=== PATIENT | female | born 1975 | race Caucasian/White ===

== ENCOUNTER 2020-03-09 09:06 | Outpatient (CLI) | payer BC, SELFPAY ==
--- NOTE | ~2020-03-09 | MM_ITS ---
EXAMINATION: MM screening rin BI w tre HISTORY: Screening mammogram TECHNIQUE: Craniocaudal and mediolateral oblique 3-D tomosynthesis images were obtained and synthetic 2-D images were generated. Bilateral rotated lateral cc views. CAD analysis was submitted and interp reted. COMPARISON: 02/01/2019 bilateral digital screening mammogram BREAST PARENCHYMAL COMPOSITION: The breasts are heterogeneously dense, which may obscure small masses . FINDINGS: There is no evidence of suspicious mass, calcification, or architectural distortion to sugg est malignancy in either breast. There has been no suspicious interval change. IMPRESSION: 1. No mammographic evidence of malignancy. 2. Recommend routine screening mammography in one year. BI-RADS Category 1: Negative Reviewed, dictated and finalized at location A.
== END 2020-03-09 09:07 | disposition home or self-care (01) ==
PROVIDERS: PCP Family Medicine
DX: Z12.31 Encounter for screening mammogram for malignant neoplasm of breast (principal)
CPT/HCPCS: 77063; 77067

== ENCOUNTER 2020-09-29 21:43 | Emergency (ER) | payer BC, SELFPAY ==
--- NOTE | ~2020-09-29 | XR_ITS ---
EXAMINATION: XR chest 2V DATE: 09/30/2020 00:06 INDICATION: Chest palpitations TECHNIQUE: PA and lateral views of the chest are obtained. COMPARISON: 12/10/2019 FINDINGS: The lungs are free of acute opacities. There is no pleural effusion or pneumothorax. The ca rdiomediastinal silhouette is normal. The visualized bones and soft tissues are unremarkable. IMPRESSION: 1. No acute cardiopulmonary abnormality. Reviewed, dictated and finalized at location A. BODY INSPECTOR
--- NOTE | 2020-09-29 22:02 | ECG_ITS ---
Measurements Intervals [place] Rate: 129 P: 43 UT: 139 QRS: 54 QRSD: 94 T: 19 QT: 312 QTc: 457 Interpretive Statements SINUS TACHYCARDIA BORDERLINE T WAVE ABNORMALITY- INFERIOR LEADS ABNORMAL ECG Electronically Signed On 09-30-2020 8:52:30 [employer]PER[employer]OR [employer] by Say Salazar D.O.
[2020-09-29 22:05] VITALS: BP 159/85; PULSE 129; RESP 18; TEMP 37.2; O2SAT 98
[2020-09-29 22:10] LABS: Basophils Absolute Auto 0.1 K/mm3 (0.0-0.1); Eosinophils Absolute Auto 0.2 K/mm3 (0-0.3); Eosinophils Percent Auto 2.5 % (0-4.4); Hematocrit 38.9 % (37.0-47.0); Hemoglobin 12.6 g/dL (12.0-15.0); Immature Granulocyte Absolute 0.03 K/mm3 (0.00-0.031); Immature Granulocyte Percent A 0.3 % (0-0.5); Lymphocytes Absolute Auto 4.11 K/mm3 (0.9-3.2); Lymphocytes Percent Auto 46.9 % (18.3-44.2); Mean Corpuscular HGB Conc 32.4 g/dl (32-36); Mean Corpuscular Hemoglobin 29.4 pg (26-34); Mean Corpuscular Volume 90.9 fl (80-100); Mean Platelet Volume 10.3 fl (7.4-10.4); Monocytes Absolute Auto 0.8 K/mm3 (0.1-0.6); Monocytes Percent Auto 9.6 % (2.6-8.5); Neutrophils Absolute Auto 3.5 K/mm3 (1.3-6.7); Neutrophils Percent Auto 39.7 % (45.5-73.1); Platelet Count Result 294 k/mm3 (150-375); Red Blood Count 4.28 M/mm3 (4.2-5.4); Red Cell Distribution Width 13.1 % (11.5-14.5); White Blood Count 8.8 K/mm3 (4.5-10.0)
[2020-09-29 22:19] LABS: INR 0.8; Prothrombin Time 11.7 Seconds (11.1-14.7)
[2020-09-29 22:20] LABS: Partial Thromboplastin Time 27.4 SECONDS (22.3-36.8)
[2020-09-29 22:22] LABS: Anion Gap 10 mmol/L (8-16); Blood Urea Nitrogen 15 mg/dL (7-17); Carbon Dioxide 27 mmol/L (22-30); Chloride 103 mmol/L (98-107); Estimated Glomerular Filt Rate > 60; Glucose 154 mg/dL (65-105); Potassium 3.8 mmol/L (3.4-5.0); Sodium 140 mmol/L (137-145)
[2020-09-29 22:34] LABS: Troponin I < 0.012 ng/mL (0.000-0.034)
[2020-09-29 22:54] VITALS: BP 161/91; PULSE 126; RESP 18; TEMP 37.2; O2SAT 97
--- NOTE | 2020-09-29 23:27 | ED.ARRPALP ---
HPI - Arrhythmia/Palpitations General Chief Complaint: Arrhythmia/Palpitations Stated Complaint: palpitations Time Seen by Provider: 09/29/20 23:27 History of Present Illness HPI narrative: Burning pain in the chest and epigastrium for the past 45 minutes. Associated with heart racing, up to 175 per her watch. Started after eating taco [employer]. Worse with laying flat. No SOB, fever, cough. She does have a h/o GERD. Related Data Allergies Allergy/AdvReac Type Severity Reaction Status Date / Time tramadol Allergy Unknown Hives Verified 10/15/20 12:13 Review of Systems Review of Systems: All systems reviewed & are unremarkable except as noted in HPI and below Constitutional: Constitutional: Denies chills and Denies fever(s) ENT: Denies sore throat Cardiovascular: Cardiovascular: Reports chest pain Respiratory: Respiratory: Denies cough and Denies dyspnea Gastrointestinal: Gastrointestinal: Reports abdominal pain, Reports nausea and Denies vomiting Genitourinary: Genitourinary: Denies dysuria Musculoskeletal: Musculoskeletal: Denies back pain Neurologic: Denies dizziness and Denies weakness FOR[facility]LY [facility] Past Medical History Medical History Finger fracture GERD (gastroesophageal reflux disease) History of in vitro fertilization Otitis media Pilonidal cyst Prediabetes Surgical History Surgical History History of surgical removal of pilonidal cyst Hx of tonsillectomy Social History Social History Smoking status: Former smoker Alcohol intake: current Substance use: never Exam Const: General: healthy appearing, no acute distress and alert Orientation/consciousness: patient oriented x3 HENMT: Head: normal to inspection Neck: Neck: normal visual inspection and no lymphadenopathy Chest: Chest palpation & inspection: no tenderness Resp: Effort & Inspection: normal respiratory effort Auscultation: clear to auscultation bilaterally, no rales, no rhonchi and no wheezes Cardio: Jugular venous distension: no JVD Rate: tachycardic Rhythm: regular rhythm Heart sounds: no murmurs GI: Inspection: non-distended GI Palp: Yes Soft to palpation and No Tenderness to palpation present (GI) Skin: General skin exam: normal color Neuro: General: patient oriented x3, moves all extremities and no focal motor deficits Speech: normal speech Extrem: General: normal to inspection and no edema Psych: Appearance: well kempt Affect: Anxious affect present Course Vital Signs Vital signs: Vital Signs Temperature 37.2 C 09/29/20 22:05 Pulse Rate 129 H 09/29/20 22:05 Respiratory Rate 18 09/29/20 22:05 Blood Pressure 159/85 H 09/29/20 22:05 Pulse Oximetry 98 09/29/20 22:05 Temperature 37.2 C 09/29/20 22:54 Pulse Rate 109 H 09/30/20 00:51 Respiratory Rate 20 09/30/20 00:51 Blood Pressure 159/74 H 09/30/20 00:51 Pulse Oximetry 100 09/30/20 00:51 MDM - Arrhythmia/Palpitations MDM Narrative Medical decision making narrative: Pain most consistent with GI source. Releived with GI cocktail. She does have mild ongoing sinus tachycardia, which she says is not unusual for her. Medical Records Attestation: I reviewed the patient's medical records. Lab Data Attestation: I reviewed the patient's lab results. Result diagrams: 09/29/20 22:04 09/29/20 22:04 Labs: Lab Results 09/29/20 09/29/20 09/29/20 Range/Units 22:04 22:04 22:04 WBC 8.8 (4.5-10.0) K/mm3 RBC 4.28 (4.2-5.4) M/mm3 Hgb 12.6 (12.0-15.0) g/dL Hct 38.9 (37.0-47.0) % MCV 90.9 (80-100) fl MCH 29.4 (26-34) pg MCHC 32.4 (32-36) g/dl RDW 13.1 (11.5-14.5) % Plt Count 294 (150-375) k/mm3 MPV 10.3 (7.4-10.4) fl Immature Gran % (Auto) 0.3 (0-0.5) % Neut % (Auto) 39.7 L (45.5-73.1)
[2020-09-29 23:34] VITALS: PULSE 115; RESP 22; O2SAT 98
[2020-09-29] MEDS: ASPIRIN 81 MG CHEWABLE TABLET 324 MG PO (23:43)
[2020-09-29] MEDS: ONDANSETRON HCL ODT 4 MG TABLET PO (23:43)
[2020-09-29 23:45] VITALS: PULSE 117; RESP 21; O2SAT 98
[2020-09-30] VITALS: PULSE 114; RESP 18; O2SAT 95
[2020-09-30 00:01] VITALS: BP 131/83
[2020-09-30 00:07] VITALS: BP 149/75; PULSE 119; RESP 23; O2SAT 96
[2020-09-30 00:16] VITALS: PULSE 110; RESP 21; O2SAT 97
[2020-09-30] MEDS: PANTOPRAZOLE 40 MG TABLET PO (00:28)
[2020-09-30 00:51] VITALS: BP 159/74; PULSE 109; RESP 20; O2SAT 100
== END 2020-09-30 00:53 | disposition home or self-care (01) ==
PROVIDERS: General Practice; Emergency Provider Emergency Medicine; PCP Family Medicine
DX: K21.9 Gastro-esophageal reflux disease without esophagitis (principal); R73.03 Prediabetes; Z87.891 Personal history of nicotine dependence
CPT/HCPCS: 36415; 71046; 80048; 84484; 85025; 85610; 85730; 93005; 99284; A9270

== ENCOUNTER 2020-12-13 11:22 | Outpatient (NON) | payer BC, SELFPAY ==
[2020-12-13 21:41] LABS: SARS-CoV-2 RNA PCR Negative
== END 2020-12-13 11:23 ==
LOC: ANHCOVIDDT 11:23
PROVIDERS: PCP Family Medicine; Visit Provider Physician Assistant
DX: Z20.822 Contact with and (suspected) exposure to COVID-19 (principal); R09.81 Nasal congestion
CPT/HCPCS: C9803; U0003; U0005

== ENCOUNTER → 2020-12-29 01:05 | Outpatient (CLI) | payer BC, SELFPAY ==
[2020-12-29 19:49] LABS: SARS-CoV-2 RNA PCR Negative
== END ==
PROVIDERS: PCP Family Medicine; Visit Provider Internal Medicine Gastroenterology
DX: Z01.812 Encounter for preprocedural laboratory examination (principal); Z20.822 Contact with and (suspected) exposure to COVID-19
CPT/HCPCS: C9803; U0003; U0005

== ENCOUNTER 2021-01-02 01:09 | Day surgery (SDC) | payer BC, SELFPAY ==
[2020-12-19 15:06] VITALS: BMI 27.1
[2021-01-02 09:14] VITALS: BP 142/86; PULSE 74; RESP 16; TEMP 37.2; O2SAT 100; BMI 28.8
[2021-01-02] MEDS: LACTATED RINGERS 1,000 ML 150 ML IV CONT (09:31)
--- NOTE | 2021-01-02 09:47 | WPDANESEPPF ---
Anes - Initial Pre Proc Eval Procedure: Operation Date: 01/02/21 10:00 Proposed Procedures p Esophagogastroduodenoscopy - Omar Rahman MD Date/Time: 01/02/21 09:47 Surgeon: Omar Rahman MD Pre Op Diagnosis: GERD Patient Data Age: 45 Gender: F Height: 5 ft 5 in Weight: 78.4 kg Last Vital Signs Temp 37.2 C 01/02/21 09:14 Pulse 74 01/02/21 09:14 Resp 16 01/02/21 09:14 BP 142/86 H 01/02/21 09:14 Pulse Ox 100 01/02/21 09:14 Allergies Allergy/AdvReac Type Severity Reaction Status Date / Time tramadol Allergy Unknown Hives Verified 01/02/21 09:13 Home Medications Medication Instructions Recorded Confirmed Type pantoprazole 40 mg tablet,delayed 40 mg PO BID #180 tablet 10/30/20 12/19/20 Rx release cetirizine [Zyrtec] 10 mg PO DAILY PRN 12/19/20 12/19/20 History metformin 500 mg tablet 500 mg PO BID #180 tablet 12/28/20 Rx Patient hx anesthesia problems: none Family hx anesthesia problems: none PMFSH Past Medical History Medical History Finger fracture GERD (gastroesophageal reflux disease) History of in vitro fertilization Otitis media Pilonidal cyst Prediabetes Surgical History Surgical History History of surgical removal of pilonidal cyst Hx of tonsillectomy Social History Social History Alcohol intake: current Substance use: never Substance use type: does not use Living arrangements: with family Gender identity (if verbalized by the patient): Female Sexual Orientation (if Verbalized by the Patient): Straight or Heterosexual Spiritual care concerns: No Anes - Eval Final PreProcedure Day of Procedure 01/02/21 09:47 Patient weight: overweight Heart: regular rate and rhythm Lungs: clear to auscultation Airway: Mallampati scale class II Neurological: alert and oriented Last oral intake: >/= 8 hours ASA classification: II Emergent: no Anesthetic plan: proceed Anesthesia type and monitoring: general GIVS and standard monitoring Informed Consent: The patient's anesthetic plan and its attendant risks and benefits were discussed with the patient/family/POA. Questions were solicited and answers provided to the satisfaction of the patient/family/POA.
[2021-01-02 09:48] LABS: Glucose Point of Care 92 (65-105)
--- NOTE | 2021-01-02 10:13 | PM.HPGS ---
History of Present Illness History of Present Illness Consent: Risks, benefits, and alternatives have been discussed and questions answered. Patient agrees to proceed with procedure. Chief complaint: GERD Narrative: Stephanie Aiken is a 45 year old female with gerd on protonix bid but never had egd Review of Systems Constitutional: Constitutional: Denies headache(s) and Denies weakness Eyes: Eyes: Denies blurry vision ENT: Reports Normal hearing present, Denies headache(s) and Denies neck pain Cardiovascular: Cardiovascular: Denies chest pain and Denies dyspnea Respiratory: Respiratory: Denies dyspnea Gastrointestinal: Gastrointestinal: Reports no additional gastrointestinal complaints Genitourinary: Genitourinary: Denies dysuria Musculoskeletal: Musculoskeletal: Denies neck pain Integumentary/Breasts: Skin/Breast: Denies dry skin Neurologic: Reports Normal hearing present, Denies headache(s) and Denies weakness Psychiatric: Psychiatric: Denies anxiety Endocrine: Endocrine: Denies change in body appearance Hematologic/Lymphatic: Hematologic/Lymphatic: Denies easy bleeding Allergic/Immunologic: Allergic/Immunologic: Denies urticaria PMFSH Past Medical History Medical History Finger fracture GERD (gastroesophageal reflux disease) History of in vitro fertilization Otitis media Pilonidal cyst Prediabetes Surgical History Surgical History History of surgical removal of pilonidal cyst Hx of tonsillectomy Social History Social History Alcohol intake: current Substance use: never Substance use type: does not use Living arrangements: with family Gender identity (if verbalized by the patient): Female Sexual Orientation (if Verbalized by the Patient): Straight or Heterosexual Spiritual care concerns: No Meds Home Medications and Allergies Home Medications Medication Instructions Recorded Confirmed Type pantoprazole 40 mg tablet,delayed 40 mg PO BID #180 tablet 10/30/20 12/19/20 Rx release cetirizine [Zyrtec] 10 mg PO DAILY PRN 12/19/20 12/19/20 History metformin 500 mg tablet 500 mg PO BID #180 tablet 12/28/20 Rx Allergies Allergy/AdvReac Type Severity Reaction Status Date / Time tramadol Allergy Unknown Hives Verified 01/02/21 09:13 Vital Signs Vital Signs - 24 hr 01/02/21 09:14 Temperature 98.9 F Pulse Rate 74 Respiratory Rate 16 Blood Pressure 142/86 H Pulse Oximetry 100 Exam Const: General: comfortable and no acute distress HENMT: General nose exam: Normal nares present Eyes: General: appearance normal, both eyes and all related structures Neck: Neck: no JVD Resp: Auscultation: clear to auscultation bilaterally Cardio: Rate: regular rate Rhythm: regular rhythm GI: Inspection: non-distended GI Palp: Yes Soft to palpation Skin: General skin exam: normal color Neuro: General: gait normal Speech: normal speech Extrem: General: normal to inspection Psych: Mental Status: mental status grossly normal Assessment and Plan Assessment and plan (1) GERD (gastroesophageal reflux disease): Qualifiers: Esophagitis presence: without esophagitis Qualified Code(s): K21.9 - Gastro-esophageal reflux disease without esophagitis Code(s): K21.9 - Gastro-esophageal reflux disease without esophagitis Status: Acute Assessment and Plan: proceed with egd
[2021-01-02] MEDS: BENZOCAINE (*SP) 60 ML SPRAY CAN (HURRICAINE) 1 SPRAY MUCOUS MEM (10:21)
[2021-01-02 10:23] VITALS: BP 104/66; PULSE 66; RESP 20; O2SAT 97
[2021-01-02 10:33] VITALS: BP 102/64; PULSE 64; RESP 18; O2SAT 98
[2021-01-02 10:43] VITALS: BP 123/86; PULSE 72; RESP 20; O2SAT 96
== END 2021-01-02 10:58 | disposition home or self-care (01) ==
PROVIDERS: PCP Family Medicine; Visit Provider Internal Medicine Gastroenterology
PROC: 0DJ08ZZ Inspection of Upper Intestinal Tract, Via Natural or Artificial Opening Endoscopic (ICD-10-PCS; CPT 43235; principal; 2021-01-02 10:00)
DX: K21.9 Gastro-esophageal reflux disease without esophagitis (principal); K29.50 Unspecified chronic gastritis without bleeding; R73.03 Prediabetes; Z79.84 Long term (current) use of oral hypoglycemic drugs
CPT/HCPCS: 43239; 82948; 88305; C9803; J2704; J7120; U0003; U0005

== ENCOUNTER 2021-04-03 07:53 | Outpatient (CLI) | payer BC, SELFPAY ==
--- NOTE | ~2021-04-03 | MM_ITS ---
EXAMINATION: MM screening rin BI w tre HISTORY: Screening TECHNIQUE: Craniocaudal and mediolateral oblique 3-D tomosynthesis images were obtained and synthetic 2-D images were generated. CAD analysis was submitted and interpreted. COMPARISON: Comparison to multiple prior studies sequentially, with oldest reviewed study dated 02/01. BREAST PARENCHYMAL COMPOSITION: The breasts are heterogenously dense, which may obscure small masses FINDINGS: There is no evidence of suspicious mass, calcification, or architectural distortion to sugg est malignancy in either breast. There has been no suspicious interval change. IMPRESSION: 1. No mammographic evidence of malignancy. 2. Recommend routine screening mammography in one year. BI-RADS Category 1: Negative Reviewed, dictated and finalized at location A.
== END 2021-04-03 07:54 | disposition home or self-care (01) ==
LOC: ANHIMG 07:55
PROVIDERS: PCP Family Medicine; Visit Provider Physician Assistant
DX: Z12.31 Encounter for screening mammogram for malignant neoplasm of breast (principal)
CPT/HCPCS: 77063; 77067

== ENCOUNTER 2022-04-22 08:00 | Outpatient (RCR) | payer BC, SELFPAY ==
[2022-02-21 14:02] VITALS: BP_SYST 116
--- NOTE | 2022-02-21 15:06 | PTOPEVAL ---
PHYSICAL THERAPY INITIAL EVALUATION. Thank you for referring Stephanie Aiken to [facility].? The patient is scheduled to be seen for therapy? 2x/week for 8 weeks. Please review, sign, date and return this plan of care [facility]. I agree with and certify that the following plan of care is medically necessary. Referring Physician Date Attending Provider: Alberto Lomax MD *PT Outpatient Evaluation Start: 02/21/22 Evaluation Information Diagnosis Adhesive capsulitis of R shoulder Onset Jul Subjective Information Pt states her shoulder started Query Text:As Reported By Patient/ hurting around July, she Family went to her PA and was sent to PT and was placed on a few medications. She was sent to Dr. Lomax by her PA and received an injection on . Pt cannot seem to find a mechanism of injury. Pain Assessment Right Shoulder(s) Reported Pain Level 2 Pain Radiation Right Arm Pain Frequency Chronic,Intermittent Lowest Pain Intensity 0 Greatest Pain Intensity 8 Pain Aggravating Factors Lifting Upper Extremity Range of Motion Right Scapular: Retraction Normal Scapular: Protraction Normal Shoulder Flexion - Active 116 Shoulder Flexion - Passive 144 Shoulder Abduction - Active 95 Shoulder Abduction - Passive 116 Shoulder Medial Rotation - Active 32 Shoulder Medial Rotation - Active L4 Shoulder Lateral Rotation - Passive 48 Shoulder Lateral Rotation - Active T3 Scapular/Shoulder Range of Motion L shoulder flexion 0-152 Comments L shoulder abduction 0-176 L active ER T4 L active IR T10 measured in 45 deg of abduction Upper Extremity Muscle Strength Testing Right Shoulder Flexion Strength 4- Good - Shoulder Abduction Strength 3+ Fair + Shoulder Medial Rotation Strength 4+ Good + Shoulder Lateral Rotation Strength 4+ Good + Shoulder Strength Comments L shoulder grossly 4+/5 to 5/5 Posture Shoulder Posture (R) Rounded Manual Therapy Movement Findings Moderate Hypomobility Treatment Comments Decreased PROM in R compared Query Text:Include Technique and to L shoulder. inferior glides Result of Technique to increase flexion and abduction PT Clinical Summary Stephanie presents to therapy today for her initial evaluation for a diagnosis o
--- NOTE | 2022-03-07 11:57 | PCPTNOTE ---
Patient called & cancelled scheduled appointment this date due to her daughter having to stay home from daycare.
--- NOTE | 2022-03-13 08:45 | PCPTNOTE ---
Patient called & cancelled scheduled appointment this date due to having another MD appointment at the same time.
--- NOTE | 2022-04-11 08:57 | PCPTNOTE ---
Patient called & cancelled scheduled appointment this date due to not having available housekeeper child care.
[2022-04-22 08:04] VITALS: BP_SYST 178
--- NOTE | 2022-04-22 08:42 | PTOPEVAL ---
PHYSICAL THERAPY PROGRESS REPORT AND DISCHARGE SUMMARY. Thank you for referring Stephanie Aiken to [facility].? The patient is to be discharged from skilled therapy services at this time. Please review, sign, date and return this plan of care ULI. I agree with and certify that the following plan of care is medically necessary. Referring Physician Date Attending Provider: Alberto Lomax MD Evaluation Information Diagnosis Adhesive capsulitis of R shoulder Onset Jul Subjective Information Pt states overall she feels Query Text:As Reported By Patient/ like therapy is going really Family well. She states the biggest change for her in no more daily pain. Occasionally she will still get an achy pain but it is no longer constant or even daily. Pt states she is able to do everything but reach behind her back, and she states her strength is great. She reports good compliance with her HEP. She states she only gets pain after her exercises, she states her arms feel tired and overworked. Pain Assessment Self Report Pain Assessment Right Shoulder(s) Reported Pain Level 0 Greatest Pain Intensity 3 Upper Extremity Range of Motion Scapular/ Shoulder Range of Motion Right Scapular: Retraction Normal Scapular: Protraction Normal Shoulder Flexion - Active 150 Shoulder Flexion - Passive 156 Shoulder Abduction - Active 153 Shoulder Abduction - Passive 178 Shoulder Medial Rotation - Active 48 Shoulder Medial Rotation - Active T10 Shoulder Lateral Rotation - Passive 55 Shoulder Lateral Rotation - Active T4 Scapular/Shoulder Range of Motion L shoulder flexion 0-152 Comments L shoulder abduction 0-176 L active ER T4 L active IR T6 rotation measured in 45 deg of abduction Upper Extremity Muscle Strength Testing Scapular/Shoulder Right Shoulder Flexion Strength 4+ Good + Shoulder Abduction Strength 4+ Good + Shoulder Medial Rotation Strength 5 Normal Shoulder Lateral Rotation Strength 5 Normal Shoulder Strength Comments L shoulder grossly 4+/5 to 5/5 PT Clinical Summary Stephanie Vidal presents to therapy today for her progress report following 12 visits of skilled therapy to address
== END 2022-04-22 14:42 | disposition home or self-care (01) ==
LOC: ANHPT 08:00
PROVIDERS: PCP Family Medicine; Referring Provider Orthopaedic Surgery; Visit Provider Orthopaedic Surgery
DX: M75.01 Adhesive capsulitis of right shoulder (principal); M77.8 Other enthesopathies, not elsewhere classified
CPT/HCPCS: 97110; 97112; 97140; 97161

== ENCOUNTER → 2022-05-26 15:02 | Outpatient (CLI) | payer BC, SELFPAY ==
--- NOTE | ~2022-05-26 | XR_ITS ---
XR abdomen/kub 1V 05/26/2022 15:31 Indication: Right flank pain Procedure: KUB Comparison: CT dated 05/26/2022 Findings: There is a faint stone in the lower pole the right kidney. There are pelvic phleboliths. No definite ureteral stone identified. Bowel pattern is nonobstructive. No acute osseous abnormality. Impression: 1: Right nephrolithiasis. Reviewed, dictated and finalized at location A. Impression: 1: Right nephrolithiasis.
--- NOTE | ~2022-05-26 | CT_ITS ---
EXAMINATION: CT abdomen pelvis wo con DATE: 05/26/2022 15:31 INDICATION: Right flank pain. History of kidney cysts. TECHNIQUE: Computed tomography (CT) of the abdomen and pelvis was performed without intravenous contr ast. Automated exposure control and iterative reconstruction technique were employed. Exam dose: 518 .82 mGy-cm total exam DLP. COMPARISON: None. FINDINGS: The lung bases are clear of infiltrate or consolidation. Normal heart size. No pericardial or pleural effusion. The liver, gallbladder, bile ducts, spleen, pancreas, pancreatic duct and adrenal glands are unremark able. Approximately 2.8 x 4.5 mm nonobstructing lower pole right renal calculus. Approximately 8 mm hyperdense probable upper pole right renal cyst. 1.6 cm left renal cyst. There are probable additional renal cyst. The examination is limited without the use of IV contrast material. No ureteral calculus or hydroureteronephrosis. The urinary bladder is unremarkable. Probable approximately 17 mm right ovarian cyst; the uterus and adnexal areas are otherwise unremarka ble. There is normal caliber of the abdominal aorta. No intraperitoneal or retroperitoneal or pelvic mass lesion or adenopathy or ascites. Diverticulosis of colon; no CT evidence of diverticulitis. No bowel obstruction or intraperitoneal fr ee air. Small fat-containing umbilical hernia. Bilateral L5 pars interarticularis defects without spondylolisthesis. Included skeletal structures ar e otherwise unremarkable. IMPRESSION: Nonobstructing approximately 2.8 x 4.5 mm lower pole right renal calculus Bilateral renal cysts Approximately 17 mm probable right ovarian cyst Diverticulosis of the colon Bilateral L5 pars interarticularis defects; no associated spondylolisthesis Reviewed, dictated and finalized at Location A. Reviewed, dictated and finalized at location A. IMPRESSION: Nonobstructing approximately 2.8 x 4.5 mm lower pole right renal c alculus Bilateral renal cysts Approximately 17 mm probable right ovarian cyst Diverticulosis of the colon Bilateral L5 pars interarticularis defects; no associated spondylolisthesis
== END ==
PROVIDERS: PCP Internal Medicine; Visit Provider Nurse Practitioner Family
DX: R10.9 Unspecified abdominal pain (principal); N20.0 Calculus of kidney; N28.1 Cyst of kidney, acquired; K57.30 Diverticulosis of large intestine without perforation or abscess without bleeding; N83.201 Unspecified ovarian cyst, right side
CPT/HCPCS: 74018; 74176

== ENCOUNTER 2022-06-23 08:54 | Outpatient (CLI) | payer BC, SELFPAY ==
--- NOTE | 2022-06-23 09:00 | ECG_ITS ---
Measurements Intervals [place] Rate: 70 P: 58 RI: 133 QRS: 80 QRSD: 93 T: 40 QT: 377 QTc: 408 Interpretive Statements SINUS RHYTHM NORMAL ELECTROCARDIOGRAM COMPARED TO ECG 09/29/2020 21:54:45 PATIENT IS NO LONGER TACHYCARDIC Electronically Signed On 06-23-2022 14:31:52 CDT by Maury Jernigan M.D.
[2022-06-23 09:43] LABS: Anion Gap 11 mmol/L (8-16); Blood Urea Nitrogen 10 mg/dL (7-17); Calcium 9.4 mg/dL (8.4-10.2); Carbon Dioxide 24 mmol/L (22-30); Chloride 103 mmol/L (98-107); Estimated Glomerular Filt Rate > 60; Glucose 102 mg/dL (65-110); Potassium 3.9 mmol/L (3.4-5.0); Sodium 138 mmol/L (137-145)
[2022-06-23 09:44] LABS: Partial Thromboplastin Time 28.2 SECONDS (22.3-36.8); Prothrombin Time 12.3 Seconds (11.1-14.7)
== END 2022-06-23 08:55 | disposition home or self-care (01) ==
LOC: ANHSURGERY 09:00
PROVIDERS: Anesthesiology; PCP Internal Medicine; Visit Provider Urology
DX: R73.03 Prediabetes (principal); N20.0 Calculus of kidney; Z01.818 Encounter for other preprocedural examination
CPT/HCPCS: 36415; 80048; 85610; 85730; 87086; 93005

== ENCOUNTER 2022-06-25 09:03 | Outpatient (CLI) | payer BC, SELFPAY ==
--- NOTE | ~2022-06-25 | MM_ITS ---
EXAMINATION: MM screening rin BI w tre HISTORY: Screening mammogram, family history of breast cancer in her mother. TECHNIQUE: Craniocaudal and mediolateral oblique 3-D tomosynthesis images were obtained and synthetic 2-D images were generated. CAD analysis was submitted and interpreted. COMPARISON: 04/03/2021, 03/09/2020, 02/01/2019 BREAST PARENCHYMAL COMPOSITION: The breasts are heterogeneously dense, which may obscure small masses . FINDINGS: There is no suspicious mass, calcification, or architectural distortion to suggest malignan cy in either breast. There has been no suspicious interval change. IMPRESSION: 1. No mammographic evidence of malignancy. 2. Recommend routine screening mammography in one year. BI-RADS Category 1: Negative Reviewed, dictated and finalized at location A.
== END 2022-06-25 09:04 | disposition home or self-care (01) ==
PROVIDERS: PCP Internal Medicine; Referring Provider Nurse Practitioner
DX: Z12.31 Encounter for screening mammogram for malignant neoplasm of breast (principal)
CPT/HCPCS: 77063; 77067

== ENCOUNTER 2022-06-27 00:31 | Day surgery (SDC) | payer BC, SELFPAY ==
[2022-06-19 11:58] VITALS: BMI 29.2
--- NOTE | 2022-06-19 12:08 | PC.NURSE ---
Report to the Outpatient Waiting Room, entrance under the green pavilion located off [facility], at time 6:00 on date 06/27/22. OR Time: 7:30. - You and your visitor will be asked a series of questions to screen for COVID 19 for your protection. - Only one visitor is allowed at this time. - The patient visitor is requested to leave or wait in car when not with patient. - A mask is required within the hospital. Patients may have clear liquids (water, carbonated beverages, clear teas, apple juice) until 3 hours prior to surgery (4:30) with a maximum of 20 ounces. - No food from midnight until time of surgery Take the following medications with a SIP of water the morning of surgery: NONE Medications to discontinue per physician: N/A Date to take last dose: N/A Please no make-up, nail estonian, hairspray, perfume, deodorant, or body powder the day of surgery. No jewelry (including any body piercings) or valuables the day of surgery, leave them at home. Please take a shower or bath the night before, or the morning of, surgery with an antibacterial soap. Wear comfortable, loose fitting clothing. - Jewelry must be removed prior to entering the operating room. Rings and piercings that are not removed may be cut off. - The hospital will not accept responsibility for valuables. - Please leave all valuables, including medications, at home the day of surgery. If you are going home after surgery, a licensed hazmat truck driver must drive you home. - NO public transportation without another adult. - We recommend that an adult stay with you for 24 hours following discharge. - We also recommend that you do not drive, make important decision, drink alcoholic beverages, or take any drugs that were not prescribed by your health care provider for at least 24 hours after your discharge time. Follow any additional instructions given to you from your surgeon. If you or anyone in your household have experienced Covid symptoms in the past week, please notify your surgeon or the nurse liaison at the phone number below for possible testing. Telephone instructions given to PT - ARIADNE KIM and asked if any additional questions and then verbalized understanding. Patient advised to call surgeon office or pre surgery nurse liaison [phone] if any additional questions.
--- NOTE | ~2022-06-27 | XR_ITS ---
EXAMINATION: XR abdomen/kub 1V DATE: 06/27/2022 06:20 INDICATION: Kidney stone. TECHNIQUE: A supine view of the abdomen on 2 radiographs was obtained. COMPARISON: CT abdomen and pelvis 05/26/2022 FINDINGS: There are no dilated loops of bowel. There is a 4 mm stone in right kidney lower pole. Ther e are phleboliths in the pelvis. IMPRESSION: 1. 4 mm stone in right kidney lower pole. Reviewed, dictated and finalized at location A.
[2022-06-27] MEDS: LACTATED RINGERS 1,000 ML 30 ML IV CONT (06:30)
--- NOTE | 2022-06-27 06:56 | WPDHPUPDATE1 ---
History and Physical Update Update Date/Time: 06/27/22 06:56 History and Physical has been reviewed, including an updated exam of the patient. There are NO changes in the patient's condition. Risks, benefits, and alternatives have been discussed and questions answered. Patient agrees to proceed with procedure.
[2022-06-27 07:01] LABS: Glucose Point of Care 106 mg/dl (65-105)
--- NOTE | 2022-06-27 07:06 | WPDANESEPPF ---
Anes - Initial Pre Proc Eval Procedure: Operation Date: 06/27/22 07:30 Proposed Procedures p Right Extracorporeal Shock Wave Lithotripsy - Thompson Costa MD s Possible Right Stent Placement - Thompson Costa MD Date/Time: 06/27/22 07:06 Surgeon: Thompson Costa MD Pre Op Diagnosis: Right Kidney Stone Patient Data Age: 47 Gender: F Height: 1.63 m Weight: 77.11 kg Allergies Allergy/AdvReac Type Severity Reaction Status Date / Time tramadol Allergy Unknown Hives Verified 06/19/22 11:57 Home Medications Medication Instructions Recorded Confirmed Type metformin 500 mg tablet 500 mg PO BID #180 tabs 01/28/22 06/19/22 Rx pantoprazole 40 mg tablet,delayed 40 mg PO QAM #90 tabs 01/28/22 06/19/22 Rx release cetirizine 10 mg tablet (Zyrtec) 10 mg PO DAILY PRN Allergy Symptoms 05/08/22 06/19/22 History Laboratory Tests 06/27/22 06:54 POC Capillary Glucose 106 mg/dl H mg/dl (65-105) Patient hx anesthesia problems: none Family hx anesthesia problems: none Results Review: All pre-operative results and documents have been reviewed as part of the pre-operative evaluation. [facility] Past Medical History Medical History Adhesive capsulitis of right shoulder Allergies Basal cell carcinoma Finger fracture GERD (gastroesophageal reflux disease) History of in vitro fertilization In vitro fertilization Insulin resistance Kidney stones Otitis media Pilonidal cyst Prediabetes Surgical History Surgical History History of D&C History of surgical removal of pilonidal cyst Hx of tonsillectomy Family History Family History Father Family history of alcoholism Family history of cancer Hypertension Depression Heart disease Mother Family history of cancer Hypertension Depression Family history of thyroid disorder Grandparent Family history of cancer Hypertension Heart disease Cerebrovascular accident Social History Social History Years smoked: 15 Smoking status: Former smoker Tobacco type: cigarettes Smoking end date: 11/16/10 Alcohol intake: never Alcohol use details: occasional Substance use: never Substance use type: does not use Living arrangements: with family Additional occupation/education comments: RN Gender identity (if verbalized by the patient): Female Sexual Orientation (if Verbalized by the Patient): Straight or Heterosexual Spiritual care concerns: No Anes - Eval Final PreProcedure Day of Procedure 06/27/22 07:06 Patient weight: overweight Heart: regular rate and rhythm Lungs: clear to auscultation Airway: Mallampati scale class II Neurological: alert and oriented Last oral intake: >/= 8 hours ASA classification: II Emergent: no Anesthetic plan: proceed Anesthesia type and monitoring: general LMA and standard monitoring Results Review: All pre-operative results and documents have been reviewed as part of the pre-operative evaluation. Informed Consent: The patient's anesthetic plan and its attendant risks and benefits were discussed with the patient/family/POA. Questions were solicited and answers provided to the satisfaction of the patient/family/POA.
[2022-06-27] MEDS: ceFAZolin 2 GM/D5W 50 ML 2 GM/50 ML BAG IVPB (07:35)
--- NOTE | 2022-06-27 07:51 | W.PM.PROC2 ---
Procedure Note - Detailed Date of Procedure 06/27/22 Pre-op Diagnosis Right Kidney Stone Post-op Diagnosis Same Procedure Performed Right ESWL Surgeon Thompson Costa MD Description of Procedure The patient was brought to the operative suite where she was placed in the supine position on the Dornier lithotripsy table. The focal point of the lithotripter was placed at a 4-5mm right lower pole renal calculus. A total of 2500 shocks were delivered at a power setting of 4. There appeared to be good fragmentation of the stone. The patient tolerated the procedure well and was taken to the recovery room in good condition. Drains No Packing No Pathology None sent Complications No immediate complications
--- NOTE | 2022-06-27 08:11 | SUR.OPER ---
LEFT FOREARM IV SITE INTACT/NO REDNESS,WARMTH, OR SWELLING. INFUSING WITHOUT DIFFICULTY.
[2022-06-27 08:25] VITALS: BP 100/67; PULSE 58; RESP 15; TEMP 36.5; O2SAT 100
[2022-06-27 08:40] VITALS: BP 118/80; PULSE 76; RESP 18; O2SAT 100
[2022-06-27 08:41] LABS: Glucose Point of Care 93 mg/dl (65-105)
[2022-06-27 08:55] VITALS: BP 121/76; PULSE 82; RESP 14; O2SAT 98
[2022-06-27 09:06] VITALS: BP 139/73; PULSE 72; RESP 16
[2022-06-27 09:25] VITALS: BP 117/82; BP 142/80; PULSE 74; PULSE 81; RESP 16; TEMP 36.4; O2SAT 100
== END 2022-06-27 09:38 | disposition home or self-care (01) ==
PROVIDERS: PCP Internal Medicine; Visit Provider Urology
PROC: (CPT 50590; principal; 2022-06-27 07:30)
DX: N20.0 Calculus of kidney (principal); R73.03 Prediabetes; K21.9 Gastro-esophageal reflux disease without esophagitis; Z79.84 Long term (current) use of oral hypoglycemic drugs; Z87.891 Personal history of nicotine dependence
CPT/HCPCS: 50590; 74018; 82948; A9270; J0690; J1100; J2250; J2405; J2704; J3010; J7030; J7120

== ENCOUNTER 2022-07-25 14:19 | Outpatient (CLI) | payer BC, SELFPAY ==
--- NOTE | ~2022-07-25 | XR_ITS ---
EXAM: XR abdomen/kub 1V DATE: 07/25/2022 14:41 HISTORY: RIGHT URETERAL KIDNEY STONE . COMPARISON: 06/27/2022. FINDINGS: Clear lung bases. Normal bowel gas pattern. No organomegaly. Stable right lower pole calci fication. Pelvic phleboliths. Regional bones and soft tissues normal for age. IMPRESSION: Stable right nephrolithiasis. Reviewed, dictated and finalized at location K.
== END 2022-07-25 14:20 | disposition home or self-care (01) ==
PROVIDERS: PCP Internal Medicine; Visit Provider Nurse Practitioner Family
DX: N20.0 Calculus of kidney (principal)
CPT/HCPCS: 74018

== ENCOUNTER 2022-08-08 00:13 | Day surgery (SDC) | payer BC, SELFPAY ==
[2022-07-29 08:17] VITALS: BMI 29.2
[2022-08-08 07:16] VITALS: BP 149/84; PULSE 79; RESP 18; TEMP 36.8; O2SAT 100
[2022-08-08] MEDS: LACTATED RINGERS 1,000 ML 150 ML IV CONT (07:27)
[2022-08-08 07:29] LABS: Glucose Point of Care 92 mg/dl (65-105)
--- NOTE | 2022-08-08 07:54 | PM.HPGS ---
History of Present Illness History of Present Illness Consent: Risks, benefits, and alternatives have been discussed and questions answered. Patient agrees to proceed with procedure. Chief complaint: neoplasm screening Narrative: Stephanie Aiken is a 47 year old female here for first screening colonoscopy Review of Systems Constitutional: Constitutional: Denies headache(s) and Denies weakness Eyes: Eyes: Denies blurry vision ENT: Reports Normal hearing present, Denies headache(s) and Denies neck pain Cardiovascular: Cardiovascular: Denies chest pain and Denies dyspnea Respiratory: Respiratory: Denies dyspnea Gastrointestinal: Gastrointestinal: Reports no additional gastrointestinal complaints Genitourinary: Genitourinary: Denies dysuria Musculoskeletal: Musculoskeletal: Denies neck pain Integumentary/Breasts: Skin/Breast: Denies dry skin Neurologic: Reports Normal hearing present, Denies headache(s) and Denies weakness Psychiatric: Psychiatric: Denies anxiety Endocrine: Endocrine: Denies change in body appearance Hematologic/Lymphatic: Hematologic/Lymphatic: Denies easy bleeding Allergic/Immunologic: Allergic/Immunologic: Denies urticaria PMFSH Past Medical History Medical History Adhesive capsulitis of right shoulder Allergies Basal cell carcinoma Finger fracture GERD (gastroesophageal reflux disease) History of in vitro fertilization In vitro fertilization Insulin resistance Kidney stones Otitis media Pilonidal cyst Prediabetes Surgical History Surgical History (Updated 08/07/22 @ 08:04 by Marcy Leung CMA) H/O lithotripsy 06/2022 History of D&C History of surgical removal of pilonidal cyst Hx of tonsillectomy Family History Family History Father Family history of alcoholism Family history of cancer Hypertension Depression Heart disease Mother Family history of cancer Hypertension Depression Family history of thyroid disorder Grandparent Family history of cancer Hypertension Heart disease Cerebrovascular accident Social History Social History Smoking packs per day: 1.5 Smoking cigarettes per day: 30.0 Years smoked: 15 Smoking pack-years: 22.50 Smoking status: Former smoker Tobacco type: cigarettes Smoking end date: 11/16/10 Alcohol intake: current Alcohol use details: occasional Substance use: never Substance use type: does not use Living arrangements: with family Additional occupation/education comments: RN Gender identity (if verbalized by the patient): Female Sexual Orientation (if Verbalized by the Patient): Straight or Heterosexual Spiritual care concerns: No Meds Home Medications and Allergies Home Medications Medication Instructions Recorded Confirmed Type pantoprazole 40 mg tablet,delayed 40 mg PO QAM #90 tabs 01/28/22 08/07/22 Rx release cetirizine 10 mg tablet (Zyrtec) 10 mg PO DAILY PRN Allergy Symptoms 05/08/22 08/07/22 History metformin 500 mg tablet 500 mg PO BID #180 tabs 08/07/22 08/07/22 Rx semaglutide (weight loss) 0.25 0.25 mg (0.5 mL) subcut WEEKLY #2 08/07/22 08/07/22 Rx mg/0.5 mL subcutaneous pen mL injector (Wegovy) semaglutide (weight loss) 0.5 0.5 mg (0.5 mL) subcut WEEKLY #2 mL 08/07/22 08/07/22 Rx mg/0.5 mL subcutaneous pen injector (Wegovy) semaglutide (weight loss) 1 mg/0.5 1 mg (0.5 mL) subcut WEEKLY #2 mL 08/07/22 08/07/22 Rx mL subcutaneous pen injector (Wegovy) semaglutide (weight loss) 1.7 1.7 mg (0.75 mL) subcut WEEKLY #3 08/07/22 08/07/22 Rx mg/0.75 mL subcutaneous pen mL injector (Wegovy) semaglutide (weight loss) 2.4 2.4 mg (0.75 mL) subcut WEEKLY #3 08/07/22 08/07/22 Rx mg/0.75 mL subcutaneous pen mL injector (Wegovy) Allergies Allergy/AdvReac Type Severity Henry
--- NOTE | 2022-08-08 08:01 | WPDANESEPPF ---
Anes - Initial Pre Proc Eval Procedure: Operation Date: 08/08/22 08:00 Proposed Procedures p Screening Colonoscopy - Omar Rahman MD Date/Time: 08/08/22 08:01 Surgeon: Omar Rahman MD Pre Op Diagnosis: neoplasm screening Patient Data Age: 47 Gender: F Height: 1.63 m Weight: 76.9 kg Last Vital Signs Temp 98.2 F 08/08/22 07:16 Pulse 79 08/08/22 07:16 Resp 18 08/08/22 07:16 BP 149/84 H 08/08/22 07:16 Pulse Ox 100 08/08/22 07:16 O2 Del Method Room Air 08/08/22 07:16 Allergies Allergy/AdvReac Type Severity Reaction Status Date / Time tramadol Allergy Unknown Hives Verified 08/08/22 07:10 Home Medications Medication Instructions Recorded Confirmed Type pantoprazole 40 mg tablet,delayed 40 mg PO QAM #90 tabs 01/28/22 08/07/22 Rx release cetirizine 10 mg tablet (Zyrtec) 10 mg PO DAILY PRN Allergy Symptoms 05/08/22 08/07/22 History metformin 500 mg tablet 500 mg PO BID #180 tabs 08/07/22 08/07/22 Rx semaglutide (weight loss) 0.25 0.25 mg (0.5 mL) subcut WEEKLY #2 08/07/22 08/07/22 Rx mg/0.5 mL subcutaneous pen mL injector (Wegovy) semaglutide (weight loss) 0.5 0.5 mg (0.5 mL) subcut WEEKLY #2 mL 08/07/22 08/07/22 Rx mg/0.5 mL subcutaneous pen injector (Wegovy) semaglutide (weight loss) 1 mg/0.5 1 mg (0.5 mL) subcut WEEKLY #2 mL 08/07/22 08/07/22 Rx mL subcutaneous pen injector (Wegovy) semaglutide (weight loss) 1.7 1.7 mg (0.75 mL) subcut WEEKLY #3 08/07/22 08/07/22 Rx mg/0.75 mL subcutaneous pen mL injector (Wegovy) semaglutide (weight loss) 2.4 2.4 mg (0.75 mL) subcut WEEKLY #3 08/07/22 08/07/22 Rx mg/0.75 mL subcutaneous pen mL injector (Wegovy) Laboratory Tests 08/08/22 07:24 POC Capillary Glucose 92 mg/dl mg/dl (65-105) Patient hx anesthesia problems: none Family hx anesthesia problems: none Results Review: All pre-operative results and documents have been reviewed as part of the pre-operative evaluation. [facility] Past Medical History Medical History Adhesive capsulitis of right shoulder Allergies Basal cell carcinoma Finger fracture GERD (gastroesophageal reflux disease) History of in vitro fertilization In vitro fertilization Insulin resistance Kidney stones Otitis media Pilonidal cyst Prediabetes Surgical History Surgical History (Updated 08/07/22 @ 08:04 by Marcy Leung CMA) H/O lithotripsy 06/2022 History of D&C History of surgical removal of pilonidal cyst Hx of tonsillectomy Family History Family History Father Family history of alcoholism Family history of cancer Hypertension Depression Heart disease Mother Family history of cancer Hypertension Depression Family history of thyroid disorder Grandparent Family history of cancer Hypertension Heart disease Cerebrovascular accident Social History Social History Smoking packs per day: 1.5 Smoking cigarettes per day: 30.0 Years smoked: 15 Smoking pack-years: 22.50 Smoking status: Former smoker Tobacco type: cigarettes Smoking end date: 11/16/10 Alcohol intake: current Alcohol use details: occasional Substance use: never Substance use type: does not use Living arrangements: 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
[2022-08-08 08:11] VITALS: BP 112/76; PULSE 79; RESP 15; O2SAT 100
[2022-08-08 08:21] VITALS: BP 117/73; PULSE 80; RESP 15; O2SAT 100
[2022-08-08 08:31] VITALS: BP 117/86; PULSE 82; RESP 16; O2SAT 100
== END 2022-08-08 08:40 | disposition home or self-care (01) ==
PROVIDERS: PCP Internal Medicine; Visit Provider Internal Medicine Gastroenterology
PROC: 0DJD8ZZ Inspection of Lower Intestinal Tract, Via Natural or Artificial Opening Endoscopic (ICD-10-PCS; CPT 45378; principal; 2022-08-08 08:00)
DX: Z12.11 Encounter for screening for malignant neoplasm of colon (principal); Z79.84 Long term (current) use of oral hypoglycemic drugs; K21.9 Gastro-esophageal reflux disease without esophagitis; R73.03 Prediabetes; Z85.828 Personal history of other malignant neoplasm of skin; Z87.891 Personal history of nicotine dependence
CPT/HCPCS: 45378; 82948; J2704; J7120

== ENCOUNTER 2023-09-10 07:39 | Outpatient (CLI) | payer BC, SELFPAY ==
--- NOTE | ~2023-09-10 | MM_ITS ---
EXAMINATION: MM screening rin BI w tre HISTORY: Screening mammogram TECHNIQUE: Craniocaudal and mediolateral oblique 3-D tomosynthesis images were obtained and synthetic 2-D images were generated. CAD analysis was submitted and interpreted. COMPARISON: 06/25/2022, 04/03/2021, 03/09/2020 bilateral screening mammogram examinations BREAST PARENCHYMAL COMPOSITION: The breasts are heterogeneously dense, which may obscure small masses . FINDINGS: There is no evidence of suspicious mass, calcification, or architectural distortion to sugg est malignancy in either breast. There has been no suspicious interval change. IMPRESSION: 1. No mammographic evidence of malignancy. 2. Recommend routine screening mammography in one year. BI-RADS Category 1: Negative Reviewed, dictated and finalized at location A.
== END 2023-09-10 07:40 | disposition home or self-care (01) ==
PROVIDERS: PCP Internal Medicine; Visit Provider Nurse Practitioner
DX: Z12.31 Encounter for screening mammogram for malignant neoplasm of breast (principal)
CPT/HCPCS: 77063; 77067

== ENCOUNTER 2024-12-02 08:30 | Outpatient (RCR) | payer BC, SELFPAY ==
--- NOTE | 2024-09-12 11:12 | OPREHPOC ---
Outpatient Therapy Plan of Care This is a Multidisciplinary Plan of Care that may contain components documented by all disciplines (PT, OT, and ST.) PT Problem 1 PT Problem #1 Knowledge Deficit PT Goal 1 Goal / Goal Update Pt to be IND with issued HEP Target Visit 8 PT Problem 2 PT Problem #2 Pain PT Goal 1 Goal / Goal Update 1. Pt to report shoulder pain no greater than 3/10 in the last week. 2. Pt to report 75% improvement in overall symptoms. PT Problem 3 PT Problem #3 Impaired Range of Motion PT Goal 1 Goal / Goal Update 1. Pt to increase active shoulder flexion ROM from 68 to 120 deg 2. Pt to increase active shoulder abduction ROM from 42 deg 110 deg. Target Visit 10 PT Problem 4 PT Problem #4 Impaired Strength PT Goal 1 Goal / Goal Update 1. Pt to demonstrate strength 80% of her uninvolved side 2. Pt to demonstrate a 20lb lift and carry from ground level. Target Visit 10
--- NOTE | 2024-09-12 11:12 | PTOPEVAL1 ---
Assessment and note entered by Tonia Mcwilliams, PT, DPT Evaluation Information Assessment Status Evaluation Diagnosis L frozen shoulder ICD-10 Condition Codes (PT) M25.512,Weakness R53.1 Subjective Information Pt states she had a frozen shoulder in her R shoulder 2 years ago. She states in June she started to feel muscular like pain in her L arm, and when her pain did not go away by July she realized it was frozen again. She states she feels like her L shoulder feels more locked and more painful than her R shoulder. States her pain is pretty well managed. States she is planning on getting into ortho soon. Pt has a deck job. Reported Pain Level Pain Score 0: Self Report Assessment PT Clinical Summary Pt presents to therapy today for her initial evaluation with a diagnosis of L shoulder adhesive capsulitis. Today she demonstrates s/s consistent with her diagnosis. She demonstrates significant limitations in active and passive shoulder ROM on her L compared to her R, her L shoulder active flexion is limited to 68deg and abduction to 42deg . Her strength and functional is limited secondary to her mobility. Skilled therapy services are indicated to address the ROM and pain deficits noted above, to improve strength, and to return to prior level of function. Plan of Care Interventions Electrical Stimulation,Hot Pack/Cold Pack,Manual Therapy,Neuro Re-education,Patient/Caregiver Educati,Therapeutic Activities,Therapeutic Exercise PT Services Indicated Yes Treatment Frequency and 2x/wk for 10 visits Duration These treatments will address the objective and functional deficits as defined above. The patient will be advanced safely and appropriately in order for the patient to progress towards his/her prior level of function. Additional exercises will be introduced and as well as a comprehensive home exercise program upon discharge, if needed, ?to ensure carryover of functional gains achieved in the clinic. This treatment plan has been reviewed and agreement upon by the patient.
--- NOTE | 2024-09-14 13:37 | PCPTNOTE ---
Patient arrived 20 minutes late and was unable to reschedule appointment therefore was marked as a cancel.
--- NOTE | 2024-10-07 07:59 | PCPTNOTE ---
Patient was canceled 10/06/24 due to therapist being out with illness.
--- NOTE | 2024-10-17 08:34 | PCPTNOTE ---
Patient called & cancelled scheduled appointment this date due to having multiple work meetings. She has been rescheudled.
--- NOTE | 2024-10-20 11:14 | PTOPPROG ---
Assessment and note entered by Tonia Mcwilliams, PT, DPT Evaluation Information Assessment Status Progress Diagnosis L frozen shoulder ICD-10 Condition Codes (PT) M25.512,Weakness R53.1 Subjective Information Pt states it feels like her shoulder is still really stiff. She does feel like she can wash her hair and getting dressed with more ease. She still has issues reaching behind her back. She sees ortho for the first time next week. Her sleep has also improved, she can lay on her shoulder for a couple of hours. She also has decreased how much Santiago and Tylenol. Assessment PT Clinical Summary Pt presents to therapy today for her progress report following 8 visits of skilled therapy to treat her diagnosis of L shoulder adhesive capsulitis. Today she demonstrates s/s consistent with her diagnosis. She demonstrates improvements in her active motion but not her passive motion. Her L shoulder active flexion is limited to 110deg and abduction to 98deg. Her strength and functional are still limited secondary to her mobility. Continuation of skilled therapy services are indicated to continue progressing towards therapy goals, to improve ROM and strength deficits, and to return to prior level of function . Plan of Care Interventions Electrical Stimulation,Hot Pack/Cold Pack,Manual Therapy,Neuro Re-education,Patient/Caregiver Educati,Therapeutic Activities,Therapeutic Exercise PT Services Indicated Yes Treatment Frequency and 2x/wk for 10 visits Duration These treatments will address the objective and functional deficits as defined above. The patient will be advanced safely and appropriately in order for the patient to progress towards his/her prior level of function. Additional exercises will be introduced and as well as a comprehensive home exercise program upon discharge, if needed, ?to ensure carryover of functional gains achieved in the clinic. This treatment plan has been reviewed and agreement upon by the patient.
--- NOTE | 2024-10-26 14:24 | PCPTNOTE ---
Patient called and cancelled and did not give reason.
--- NOTE | 2024-11-10 08:04 | PCPTNOTE ---
Patient called & cancelled scheduled appointment this date due to needing to stay home with her daughter today.
--- NOTE | 2024-11-22 08:21 | PCPTNOTE ---
Patient called to cancel due to her daughter having e learning at home.
--- NOTE | 2024-11-24 10:24 | OPREHPOC ---
Outpatient Therapy Plan of Care This is a Multidisciplinary Plan of Care that may contain components documented by all disciplines (PT, OT, and ST.) PT Problem 1 PT Problem #1 Knowledge Deficit PT Goal 1 Goal / Goal Update Pt to be IND with issued HEP Target Visit 8 Progress Met PT Problem 2 PT Problem #2 Pain PT Goal 1 Goal / Goal Update 1. Pt to report shoulder pain no greater than 3/10 in the last week. 2. Pt to report 75% improvement in overall symptoms. 10/20/24: 1. progressing 05/25 2. Progressing, 30% 11/24/24: 1. progressing 03/25 2. Progressing, 50% Progress Partially Met PT Problem 3 PT Problem #3 Impaired Range of Motion PT Goal 1 Goal / Goal Update 1. Pt to increase active shoulder flexion ROM from 68 to 120 deg 2. Pt to increase active shoulder abduction ROM from 42 deg 110 deg. 10/20/24: 1. progressing to 110 deg 2. Progressing to 98 deg 11/24/24: 1. met 2. met Target Visit 10 Progress Met PT Problem 4 PT Problem #4 Impaired Strength PT Goal 1 Goal / Goal Update 1. Pt to demonstrate strength 80% of her uninvolved side 2. Pt to demonstrate a 20lb lift and carry from ground level. 10/20/24: 1-2. not met 11/24/24: 1-2. progressing Target Visit 10 Progress Partially Met
--- NOTE | 2024-11-24 10:24 | PTOPPROG ---
Assessment and note entered by Tonia Mcwilliams, PT, DPT Evaluation Information Assessment Status Progress Diagnosis L frozen shoulder ICD-10 Condition Codes (PT) Pain in left shoulder M25.512,Weakness R53.1 Subjective Information Pt states it feels like her shoulder is still really stiff. She does feel like she can wash her hair and getting dressed with more ease. She still has issues reaching behind her back. She sees ortho for the first time next week. Her sleep has also improved, she can lay on her shoulder for a couple of hours. She also has decreased how much Santiago and Tylenol. Assessment PT Clinical Summary Pt presents to therapy today for her progress report following 14 visits of skilled therapy to treat her diagnosis of L shoulder adhesive capsulitis. She demonstrates improvements in her active motion, pain reports, and strength. Her L shoulder active flexion is limited to 130deg and abduction to 40deg. Her strength and functional are still limited when compared to her R shoulder. Continuation of skilled therapy services are indicated to continue progressing towards therapy goals, to improve ROM and strength deficits, and to return to prior level of function. Plan of Care Interventions Electrical Stimulation,Hot Pack/Cold Pack,Manual Therapy,Neuro Re-education,Patient/Caregiver Education,Therapeutic Activities,Therapeutic Exercise PT Services Indicated Yes Treatment Frequency and 1x/wk for 8 visits Duration These treatments will address the objective and functional deficits as defined above. The patient will be advanced safely and appropriately in order for the patient to progress towards his/her prior level of function. Additional exercises will be introduced and as well as a comprehensive home exercise program upon discharge, if needed, ?to ensure carryover of functional gains achieved in the clinic. This treatment plan has been reviewed and agreement upon by the patient.
--- NOTE | 2024-12-06 09:14 | PCPTNOTE ---
Patient called to cancel due to the weather.
--- NOTE | 2024-12-12 10:16 | PCPTNOTE ---
This treatment is being continued on visit number [id number]. Please see documentation on both accounts to view progress. Completed interventions, outcomes, and problems have been marked as Inactive to facilitate the copying of the Care plan routine for recurring accounts.
== END 2024-12-11 23:59 | disposition home or self-care (01) ==
LOC: ANHGOSHPT 08:30
PROVIDERS: PCP Nurse Practitioner; Visit Provider Nurse Practitioner
DX: M75.02 Adhesive capsulitis of left shoulder (principal)
CPT/HCPCS: 97014; 97110; 97140; 97161; 97530; G0283

== ENCOUNTER 2024-12-27 08:00 | Outpatient (RCR) | payer BC, SELFPAY ==
--- NOTE | 2024-12-12 10:17 | PCPTNOTE ---
The treatment documented on this account is a continuation of the treatment documented on visit number [id number]. Please see documentation on both accounts to view progress. The Plan of Care has been transitioned and updated within the new V#. I have addressed and agree with the discipline specific Problems, Interventions, and Goals for the current certification period. Completed interventions, outcomes, and problems have been marked as Inactive to facilitate the copying of the Care plan routine for recurring accounts.
--- NOTE | 2024-12-20 08:17 | PCPTNOTE ---
Patient reports her daughter and her are both ill and she cannot make it to therapy this date.
--- NOTE | 2024-12-23 15:20 | PCPTNOTE ---
Pt. did not show for her appointment for physical therapy this date.
--- NOTE | 2024-12-27 08:48 | OPREHPOC ---
Outpatient Therapy Plan of Care This is a Multidisciplinary Plan of Care that may contain components documented by all disciplines (PT, OT, and ST.) PT Problem 1 PT Problem #1 Knowledge Deficit PT Goal 1 Goal / Goal Update Pt to be IND with issued HEP Target Visit 8 Progress Met PT Problem 2 PT Problem #2 Pain PT Goal 1 Goal / Goal Update 1. Pt to report shoulder pain no greater than 3/10 in the last week. 2. Pt to report 75% improvement in overall symptoms. 10/20/24: 1. progressing 05/25 2. Progressing, 30% 11/24/24: 1. progressing 03/25 2. Progressing, 50% 12/27/24: 1. progressing, 04/25 2. Met, 85% improvement Progress Partially Met PT Problem 3 PT Problem #3 Impaired Range of Motion PT Goal 1 Goal / Goal Update 1. Pt to increase active shoulder flexion ROM from 68 to 120 deg 2. Pt to increase active shoulder abduction ROM from 42 deg 110 deg. 10/20/24: 1. progressing to 110 deg 2. Progressing to 98 deg 11/24/24: 1. met 2. met Target Visit 10 Progress Met PT Problem 4 PT Problem #4 Impaired Strength PT Goal 1 Goal / Goal Update 1. Pt to demonstrate strength 80% of her uninvolved side 2. Pt to demonstrate a 20lb lift and carry from ground level. 10/20/24: 1-2. not met 11/24/24: 1-2. progressing Target Visit 10 Progress Partially Met
--- NOTE | 2024-12-27 08:48 | PTOPDC ---
Assessment and note entered by Tonia Mcwilliams, PT, DPT Evaluation Information Assessment Status Discharge Diagnosis L frozen shoulder ICD-10 Condition Codes (PT) Pain in left shoulder M25.512,Weakness R53.1 Subjective Information Pt states it feels like she is doing well, she was really ill last week so did not do her exercises or stretch as much as she should have. She states being immobile made her shoulder hurts a bit more than usual. Reported Pain Level Pain Score 1: Self Report Assessment PT Clinical Summary Pt presents to therapy today for her progress report following 17 visits of skilled therapy to treat her diagnosis of L shoulder adhesive capsulitis. She demonstrates improvements in her active motion and strength. She has met or progressed well towards all of her therapy goals. She reports no functional limitations at this time . She will be d/c'ed from therapy at this time, to continue her HEP.
== END 2024-12-27 08:59 | disposition home or self-care (01) ==
LOC: ANHGOSHPT 08:00
PROVIDERS: PCP Nurse Practitioner; Visit Provider Nurse Practitioner
DX: M75.02 Adhesive capsulitis of left shoulder (principal)
CPT/HCPCS: 97110; 97530

== ENCOUNTER 2025-10-24 08:54 | Outpatient (CLI) | payer BC, SELFPAY ==
--- NOTE | ~2025-10-24 | US_ITS ---
US right upper quadrant Indication: R10.11 - Right upper quadrant pain Comparison: None Technique: Chery-scale and color Doppler images were obtained. Findings: LIVER: Unremarkable, liver contours intact, no lesions. Normal echogenicity. . GALLBLADDER/BILIARY: Unremarkable.No cholelithiais, wall thickening or pericholecystic fluid. No biliary dilatation. CBD 3 mm. [place] sign negative. PANCREAS: Unremarkable. Right Kidney: Right kidney 10.5 cm, normal. Impression: No acute abnormality. Reviewed, dictated and finalized at location P. LE SCHOOL ASSISTANT PRINCIPAL Impression: No acute abnormality.
== END 2025-10-24 08:55 | disposition home or self-care (01) ==
LOC: MICIMG 08:55
PROVIDERS: PCP Clinical Nurse Specialist; Visit Provider Clinical Nurse Specialist
DX: R10.11 Right upper quadrant pain (principal)
CPT/HCPCS: 76705

== ENCOUNTER 2025-11-01 09:48 | Outpatient (CLI) | payer BC, SELFPAY ==
--- NOTE | ~2025-11-01 | NM_ITS ---
EXAM/PROCEDURE: [id number] HISTORY: Right Upper Quadrant pain COMPARISON: None available. TECHNIQUE: Hepatobiliary scintigraphy performed Dose: 4.529 mCi technetium 99m Choletec administered. Following visualization of small bowel activity, 1.5 mcg of Kinevac were administered. FINDINGS: Prompt homogeneous liver uptake noted. The gallbladder is seen within 20 minutes. Gallbladder ejection fraction calculated at 53% IMPRESSION: No evidence of cystic duct obstruction. Gallbladder ejection fraction 53%, within normal limits. Reviewed, dictated and finalized at location A. PEELING MACHINE OPERATOR IMPRESSION: No evidence of cystic duct obstruction. Gallbladder ejection fraction 53%, with in normal limits.
--- OUTSIDE RECORDS SUMMARY | 2025-11-01 11:18 | XMS_ITS | Encounter Summary ---
Author Organization [facility] Address [address] [place] [address] Care Team Providers Care Hook And Eye Sewing Machine Operator Name Role Phone Zeenat Ramirez MD Primary Care Provide r No, Physician Primary Care Provider [phone] No, Physician Primary Care Provider [phone] Mckenzie Mejía MD Primary Care Provider [phone] Poornima Sherman MD Unavailable [phone] Iona John NP Primary Care Provider [phone] Deanna Ledezma MD Unavailable [phone] Encounter Details Date Type Department Care Team (Late st Contact Info) Description 03/18/2018 Orders Only [facility] Information Management [address] [place], [place] [id number] Scanning, Provider Social History Tobacco Use Types Packs/Day Years Used Date Smoking Tobacco: Never Assessed Comments Yes Sex and Gender Information Value Date Recorded Sex Assigned at Not on file Legal Sex 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 Gender Identity Not on file Sexual Orientation Not on file documented as of this encounter Functional Status * Edema Answer Date of Assessment Author Trace 03/18/2018 1:57 PM CDT Thierno Greene MD documented as of this encounter Plan of Treatment Not on file documented as of this encounter Procedures Procedure Name Priority Date/Time Associated Diagnosis Comments OBSTETRIC/GYNECOLOGY ULTRASONOGRAPHY REPORT 03/30/2018 11:22 AM CDT OBSTETRIC/GYNECOLOGY ULTRASONOGRAPHY REPORT 03/18/2018 1:22 PM CDT documented in this encounter Results * OBSTETRIC/GYNECOLOGY ULTRASONOGRAPHY REPORT (03/30/2018 11:22 AM CDT) Anatomical Region Laterality Modality Ultrasound us Provider Scanning IMG OB US PROCEDURES Final Res ult * OBSTETRIC/GYNECOLOGY ULTRASONOGRAPHY REPORT (03/18/2018 1:22 PM CDT) Anatomical Region Laterality Modality Ultrasound us Provider Scanning IMG OB US PROCEDURES Final Res ult documented in this encounter Visit Diagnoses Not on filedocumented in this encounter Care Teams Hook And Eye Sewing Machine Operator Relationship Specialty Start Date End Date Zeenat Ramirez MD [address] [place] [address] [address] [place], [place] [id number] PCP - General 05/13/17 05/30/18 No, Physician PCP - General 05/31/18 08/09/18 No, Physician PCP - General 08/10/18 04/02/19 Mckenzie Mejía MD [address] [place] [address] PCP - General 04/03/19 01/13/24 Iona John NP [address] [place] [address] DR BRITO [address] [place] [address] PCP - General Internal Medicine 01/14/24 Poornima Sherman MD [address] [place] [address] DR BR[address] [place] [address] Consulting Physician Obstetrics and Gynecology 01/07/24 Deanna Ledezma MD [address] [place] [address] Medical Oncologist/Supervisor Acoustical Tile Carpenters Hematology and Oncology 01/20/24 documented as of this encounter
--- OUTSIDE RECORDS SUMMARY | 2025-11-01 11:18 | XMS_ITS | Encounter Summary ---
Author Organization [facility] Address [address] [place] [address] Care Team Providers Care Distributor Cleaner Name Role Phone No, Physician Primary Care Provider [phone] Mckenzie Mejía MD Primary Care Provider Poornima Sherman MD Unavailable [phone] Iona John NP Primary Care Provider [phone] Deanna Ledezma MD Unavailable [phone] Encounter Details Date Type Department Care Team (Late st Contact Info) Description 09/08/2018 Telephone 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 documented in this encounter Plan of Treatment Not on file documented as of this encounter Visit Diagnoses Not on filedocumented in this encounter Care Teams Distributor Cleaner Relationship Specialty Start Date End Date No, Physician PCP - General 08/10/18 04/02/19 Mckenzie Mejía MD [address] [place] [address] PCP - General 04/03/19 01/13/24 Iona John, AUTOMATIC PAD MAKING MACHINE OPERATOR [address] [place] [address] DR [address]RI[address] [place] [id number] PCP - General Internal Medicine 01/14/24 Poornima Sherman MD [address] [place] [address] DR BRIT[address] [place] [address] Consulting Physician Obstetrics and Gynecology 01/07/24 Deanna Ledezma MD [address] [place] [address] Medical Oncologist/R Developer Hematology and Oncology 01/20/24 documented as of this encounter
--- OUTSIDE RECORDS SUMMARY | 2025-11-01 11:19 | XMS_ITS | Clinical Summary ---
Author Organization [facility] Address [address] [place] [address] Care Team Providers Care Unit Control Clerk Name Role Phone Mckenzie Mejía MD Primary Care Provider [phone] Source Comments [facility],non-owned Affiliates and Associated Physician Practices is amultiple site organization consisting of ambulatory clinics and hospital sitesin [place], [place], [place] and [place]. This disclosure is being madepursuant to the Care Everywhere program and may not contain all information available regarding this patient. Last updated 18.[facility] Allergies Active Allergy Reactions Criticality Noted Date Comments Tramadol Itching,GI Discomfort 11/29/2010 Medications * Be aware that medications may not be up to date on this document. Alwaysverify current medications with the patient. pantoprazole EC (PROTONIX) 40 MG tablet Take 1 (one) tablet by mouth 2 times daily 1 Active cetirizine (ZYRTEC) 10 MG tablet Take 1 (one) tablet by mouth once daily as needed for Allergies Active Wegovy 2.4 MG/0.75ML pen INJECT 2.4MG SUBCUTANEOUSLY ONCE WEEKLY 3 Active Active Problems Problem Noted Date Diagnosed Date Screening for condition 08/14/2011 Overview (06/26/2022): 06/06/2022: PAP NILM, HPV neg --> 202406/25/2022: MMG BIRADS-1 Dysmenorrhea 08/07/2011 Immunizations Immunization Administration Dates Next Due INFLUENZA VACCINE, TRIV. (AF LURIA, FLUZONE TRIVALENT; 6MO+) (IIV3) 08/10/2013 TDAP (7yrs+) 07/15/2012 Family History Medical History Relation Name Comments CAD (Coronary Artery Disease) Father began age 55 Heart Disease Father Heart Failure Father Hypertension Father Cancer - Breast Mother Hypertension Mother Multiple Sclerosis Mother Cancer - Ovarian Paternal Grandmother Relation Name Status Comments Brother Alive Father Alive Mother Alive Paternal Grandmother Social History Tobacco Use Types Packs/Day Years Used Date Smoking Tobacco: Former Cigarettes 0 Q uit: 09/29/2010 Smokeless Tobacco: Never Tobacco Cessation:Counseling Given: Not Answered Alcohol Use Standard Drinks/Week Comments Yes 5 (1 standard drink = 0.6 oz pur e alcohol) social PHQ-2 Answer Date Recorded PHQ2 TOTAL SCORE 0 04/16/2023 Comments No Sex and Gender Information Value Date Recorded Sex Assigned at Not on file Legal Sex Female 9:44 AM LOSS PREVENTION OPERATIONS MANAGER Gender Identity Female 05/18/2022 4:34 AM CDT Sexual Orientation Straight 05/18/2022 4: 34 AM CDT Occupation Industry Job Start Date Job End Date RN Not on file Not on file Not on file Last Filed Vital Signs Vital Sign Reading Time Taken Comments Blood Pressure 130/78 04/16/2023 1:14 PM CDT Pulse 78 12/20/2020 2:28 PM LOSS PREVENTION OPERATIONS MANAGER Temperature 37.6 C (99.7 F) 07/11/2015 1:38 PM CDT Respiratory Rate 20 07/11/2015 1:38 PM CDT Oxygen Saturation 98% 12/20/2020 2:28 PM LOSS PREVENTION OPERATIONS MANAGER Inhaled Oxygen Concentration - - Weight 69.4 kg (153 lb) 04/16/2023 1:14 PM CDT Height 162.6 cm (5' 4) 04/16/2023 1:14 PM CDT Body Mass Index 26.26 04/16/2023 1:14 PM CDT Plan of Treatment Health Maintenance Due Date Last Done Comments COLOGUARD (AGES 45-75) - COLON CA SCREENING 1977 COLON MONITORING 1977 COLONOSCOPY - COLON CA SCREENING 1977 CT COLONOGRAPHY - COLON CA SCREENING 1977 Colorectal Cancer Screening 1977 FIT - COLON CA SCREENING 1977 FLEX SIG - COLON CA SCREENING 1977 HEPATITIS C SCREENING 01/24/1995 HEPATITIS B VACCINE (1 of 3 - 19+ 3-dose series) 01/29/1996 LIPID TESTING 07/14/2018 07/14/2013 SCREENING FOR DIABETES 06/06/2022 3, 10/02/2012, 08/07/2011 DTAP/TDAP/TD VACCINES (2 - Td or Tdap) 07/15/2022 07/15/2012 MAMMOGRAM 06/25/2024 06/25/2022, 01/14, 07/13/2017 DEPRESSION SCREENING 11/16/2024 04/16/2023 COVID-19 VACCINE ( season) 2025 09/11/2021, 01/21/2021 INFLUENZA VACCINE (#1) 2025 , 08/15/2020, 10/21/2019, Additional history exists ZOSTER VACCINE (1 of 2) 2027 PAP with HPV 06/06/2027 06/06/2022, 11/16, 05/22/2016 HIV SCREENING Completed 07/15/2012 HIB VACCINE Aged Out No longer eligi ble based on patient's age to complete this topic HPV VACCINE Aged Out No longer eligi ble based on patient's age to complete this topic MENINGOCOCCAL (Group B) VACCINE SHARED DECISION-MAKING Aged Out No longer eligible based on patient's age to complete this topic MENINGOCOCCAL GROUPS A/C/Y/W VACCINE Aged Out No longer eligible based on patient's age to complete this topic PNEUMOCOCCAL VACCINE Aged Out No long er eligible based on patient's age to complete this topic Procedures Procedure Name Priority Date/Time Associated Diagnosis Comments MAMMO BILAT SCREENING Routine 06/25/2022 Encounter for screening mammogram for malignant neoplasm of breast PAP IG LB +HPV APTIMA REFLEX 16,18/45 FOR HR POS Routine 06/06/2022 10:53 AM CDT Well woman exam with routine gynecological exam COMPREHENSIVE METABOLIC PANEL Routine 07/14/2013 8:49 AM CDT Elevated blood pressure (not hypertension) LIPID PROFILE Routine 07/14/2013 8:49 AM CDT Elevated blood pressure (not hypertension) HIV-1 HIV-2 ANTIBODY Routine 07/15/2012 2:30 PM CDT Pre-conception counseling from Last 3 Months or Most Recently Relevant to Health Maintenance Results * MAMMO BILAT SCREENING (06/25/2022) Anatomical Region Laterality Modality Breast Bilateral Mammography 06/25/2022 us Emily Montalvo MD MAMMO ORDERABLES F inal Result * PAP IG LB +HPV APTIMA REFLEX 16,18/45 FOR HR POS (06/06/2022 10:53 AM CDT) Diagnosis [facility] ACCOUNT BILL Comment:NEGATIVE FOR INTRAEP ITHELIAL LESION OR MALIGNANCY. Specimen Adequacy [facility] ACCOUNT BILL Comment: Satisfactory for evaluation. Endocervical and/or squamous metaplastic cells (endocervical component) are present. Clinician Provided ICD10 [facility] ACCOUNT BILL Comment: Z01.419 Z12.31 Performed by [facility] ACCOUNT BILL Comment:Belem amado, Airport Clerk (ASCP) Comment . [facility] ACCOUNT BILL Note [facility] ACCOUNT BILL Comment: The Pap smear is a screening test designed to aid in the detection of premalignant and malignant conditions of the uterine cervix. It is not a diagnostic procedure and should not be used as the sole means of detecting cervical cancer. Both false-positive and false-negative reports do occur. . IGLBP CPT Code Automation [facility] ACCOUNT BILL Comment: This liquid based ThinPrep(R) pap test was screened with the use of an image guided system. Human papillomavirus Aptima Negative Negative [facility] ACCOUNT BILL Comment: This nucleic acid amplification test detects fourteen high-risk HPV types (16,18,31,33,35,39,45,51,52,56,58,59,66,68) without differentiation. PART OF UTERINE CERVIX / Unknown 06/06/2022 10:53 AM CDT 06/09/2022 Narrative [facility] ACCOUNT BILL - 06/10/2022 12:07 PM CDT No. of containers..01 ThinPrep Vial Resulting Agency Comment Lab Testing performed at: [address] [place] [id number] Emily Montalvo MD LAB - PATHOLOGY/CY TOLOGY ORDERABLES Final Result [facility] ACCOUNT BILL [address] [place] [address] * (ABNORMAL) COMPREHENSIVE METABOLIC PANEL (07/14/2013 8:49 AM CDT) Glucose 94 65 - 99 mg/dL [facility] ACCOUNT BILL BUN 14 6 - 20 mg/dL [facility] ACCOUNT BILL Creatinine 0.67 0.57 - 1.00 mg/dL [facility] ACCOUNT BILL eGFR by MDRD 113 >59 mL/min/1.7 3 [facility] ACCOUNT BILL eGFR by MDRD 131 >59 mL/min/1.7 3 [facility] ACCOUNT BILL BUN/Creatinine Ratio 21(H) 8 - 20 [facility] ACCOUNT BILL Sodium 142 134 - 144 mmol/L [facility] ACCOUNT BILL Potassium 4.2 3.5 - 5.2 mmol/L [facility] ACCOUNT BILL Chloride 104 97 - 108 mmol/L [facility] ACCOUNT BILL CO2 23 19 - 28 mmol/L [facility] ACCOUNT BILL Calcium 9.6 8.7 - 10.2 mg/dL [facility] ACCOUNT BILL Protein Total 7.4 6.0 - 8.5 g/dL [facility] ACCOUNT BILL Albumin 4.7 3.5 - 5.5 g/dL [facility] ACCOUNT BILL Globulin Total 2.7 1.5 - 4.5 g/dL [facility] ACCOUNT BILL Albumin/Globulin Ratio 1.7 1.1 - 2.5 [facility] ACCOUNT BILL Bilirubin Total 0.6 0.0 - 1.2 mg/dL [facility] ACCOUNT BILL Alkaline Phosphatase 64 42 - 107 IU/L [facility] ACCOUNT BILL AST 17 0 - 40 IU/L [facility] ACCOUNT BILL ALT 16 0 - 32 IU/L [facility] ACCOUNT BILL Blood specimen (specimen) BLOOD SPECIMEN / Unknown 07/14/2013 8:49 AM CDT 07/14/2013 12:38 PM CDT Narrative Resulting Agency Comment [facility] [address] [facility] [id number] Zeenat Ramirez MD LAB - CHEMISTRY ORDERA BLES Final Result Performing Organization Address City/[facility]/ZIP Co de Phone Number [facility] ACCOUNT BILL [address] [place] [address] * LIPID PROFILE (07/14/2013 8:49 AM CDT) Cholesterol 199 100 - 199 mg/dL [facility] ACCOUNT BILL Triglycerides 111 0 - 149 mg/dL [facility] ACCOUNT BILL HDL Cholesterol 83 >39 mg/dL [facility] ACCOUNT BILL Comment: According to ATP-III Guidelines, HDL-C >59 mg/dL is considered a negative risk factor for CHD. VLDL Calculated 22 5 - 40 mg/dL [facility] ACCOUNT BILL LDL Calculated 94 0 - 99 mg/dL [facility] ACCOUNT BILL Comment NOT NEEDED [facility] ACCOUNT BILL Comment:Ancillary determined the test is not needed Blood specimen (specimen) BLOOD SPECIMEN / Unknown 07/14/2013 8:49 AM CDT 07/14/2013 12:38 PM CDT Narrative Resulting Agency Comment [facility] [address] [phone] Zeenat Ramirez MD LAB - CHEMISTRY ORDERCecelia BLES Final Result Performing Organization Address [facility] de Phone Number [facility] ACCOUNT BILL [address] [place] [address] * HIV-1 HIV-2 ANTIBODY (07/15/2012 2:30 PM CDT) HIV-1 Antibody O.D. Ratio <1.00 <1.00 [facility] ACCOUNT BILL Comment:Index Value: Specime n reactivity relative to the negative cutoff. HIV-1/HIV-2 Non Reactive Non Reactive [facility] ACCOUNT BILL Blood specimen (specimen) BLOOD SPECIMEN / Unknown 07/15/2012 2:30 PM CDT 07/15/2012 9:56 PM CDT Narrative Resulting Agency Comment [facility] [address] [facility] [phone] Emily Montalvo MD LAB - CHEMISTRY OR DERABLES Final Result [facility] ACCOUNT BILL [address] [place] [address] from Last 3 Months or Most Recently Relevant to Health [place] [address] Care Teams Unit Control Clerk Relationship Specialty Start Date End Date Mckenzie Mejía MD [address] [place] [address] PCP - General Family Medicine 03/09/21
--- OUTSIDE RECORDS SUMMARY | 2025-11-01 11:19 | XMS_ITS | Encounter Summary ---
Author Organization [facility] Address [address] [place] [address] Phone Care Team Providers Care Production Administrator Name Role Phone Zeenat Ramirez MD Primary Care Provide r No, Physician Primary Care Provider [phone] No, Physician Primary Care Provider [phone] Mckenzie Mejía MD Primary Care Provider [phone] Poornima Sherman MD Unavailable [phone] Iona John NP Primary Care Provider [phone] Deanna Ledezma MD Unavailable [phone] Encounter Details Date Type Department Care Team (Late st Contact Info) Description 03/03/2018 Orders Only [facility] ProviderAmanda MD [facility] [place] [address] Social History Tobacco Use Types Packs/Day Years Used Date Smoking Tobacco: Never Assessed Comments Yes Sex and Gender Information Value Date Recorded Sex Assigned at Not on file 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 us Historical Provider LAB BLOOD ORDERABLES Haydee l Result documented in this encounter Visit Diagnoses Not on filedocumented in this encounter Care Teams Production Administrator Relationship Specialty Start Date End Date Zeenat Ramirez MD [address] [facility] [address] [place] [address] PCP - General 05/13/17 05/30/18 No, Physician PCP - General 05/31/18 08/09/18 No, Physician PCP - General 08/10/18 04/02/19 Mckenzie Mejía MD [address] [place] [address] PCP - General 04/03/19 01/13/24 Iona John NP [address] [place] [address] DR BRITO [address] [place] [address] PCP - General Internal Medicine 01/14/24 Poornima Sherman MD [address] [place] [address] DR BR[address] [place] [address] Consulting Physician Obstetrics and Gynecology 01/07/24 Deanna Ledezma MD [address] [place] [address] Medical Oncologist/Loft Rigger Hematology and Oncology 01/20/24 documented as of this encounter
--- OUTSIDE RECORDS SUMMARY | 2025-11-01 11:19 | XMS_ITS | Encounter Summary ---
Author Organization [facility] Healthcare Address [address] [place] [address] Care Team Providers Care Brand Representative Name Role Phone Poornima Sherman MD Unavailable [phone] Iona John NP Primary Care Provider [phone] Deanna Ledezma MD Unavailable [phone] Encounter Details Date Type Department Care Team (Late st Contact Info) Description 09/07/2025 Results Follow-Up [facility] [address] [place] [address] [address] [place] [address] Poornima Sherman MD [address] [place] [address] [address] [place] [address] Pap and HPV, reflex to HPV Genotypes Social History Tobacco Use Types Packs/Day Years Used Date Smoking Tobacco: Former Cigarettes Passive Smoke Exposure: Never Smokeless Tobacco: Never Alcohol Use Standard Drinks/Week Comments No 0 (1 standard drink = 0.6 oz pur e alcohol) Humiliation, Afraid, Rape, and Kick questionnair e Answer Date Recorded Within the last year, have y ou been afraid of your partner or ex-partner? No 05/08/2025 Within the last year, have y ou been humiliated or emotionally abused in other ways by your partner or ex-partner? No Within the last year, have y ou been kicked, hit, slapped, or otherwise physically hurt by your partner or ex-partner? No 05/08/2025 Within the last year, have y ou been raped or forced to have any kind of sexual activity by your partner or ex-partner? No 05/08/2025 AUDIT-C Answer Date Recorded Q1: How often do you have a drink containing alcohol? Never 01/15/2024 Q2: How many drinks containi ng alcohol do you have on a typical day when you are drinking? Patient does not drink Q3: How often do you have si x or more drinks on one occasion? Never 01/15/2024 PHQ-2 Answer Date Recorded PHQ-2 Total Score 0 09/04/2025 Exercise Vital Sign Answer Date Recorde d On average, how many days pe r week do you engage in moderate to strenuous exercise (like a brisk walk)? 4 days 01/15/2024 On average, how many minutes do you engage in exercise at this level? 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 Gender Identity Not on file Sexual Orientation Not on file documented as of this encounter Plan of Treatment Not on file documented as of this encounter Visit Diagnoses Not on filedocumented in this encounter Care Teams Brand Representative Relationship Specialty Start Date End Date Iona John NP [facility] [address] BR[address] [place] [address] PCP - General Internal Medicine 01/14/24 Poornima Sherman MD [address] [place] [address] DR [address]ITO [address] [place] [address] Consulting Physician Obstetrics and Gynecology 01/07/24 Deanna Ledezma MD [address] [place] [address] Medical Oncologist/Visual C Developer Hematology and Oncology 01/20/24 documented as of this encounter
--- OUTSIDE RECORDS SUMMARY | 2025-11-01 11:19 | XMS_ITS | Encounter Summary ---
Author Organization [facility] Address [address] [place] [address] Care Team Providers Care Railway Switchman Name Role Phone Zeenat Ramirez MD Primary Care Provider Unavailable Encounter Details Date Type Department Care Team (Late st Contact Info) Description 07/05/2008 Emergency [facility] [place], Authorized P NO ADDRESS ON FILE Foreign Body in Unspecified Site on External Eye; Accident Caused by Caustic and Corrosive Substances; Place of Occurrence, Industrial Places and Premises Social History Tobacco Use Types Packs/Day Years Used Date Smoking Tobacco: Never Assessed Comments Unknown Sex and Gender Information Value Date Recorded Sex Assigned at Not on file 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
--- OUTSIDE RECORDS SUMMARY | 2025-11-01 11:19 | XMS_ITS | Clinical Summary ---
Author Organization [facility] Address [address] [place] [address] Care Team Providers Care Biology Intern Name Role Phone Poornima Sherman MD Unavailable [phone] Iona John NP Primary Care Provider [phone] Deanna Ledezma MD Unavailable Allergies Active Allergy Reactions Criticality Noted Date Comments Tramadol Hives,Nausea only Medium 02/16/2018 Medications cetirizine (ZyrTEC) 10 mg tablet Take 1 tablet (10 mg total) by mouth daily as needed Active pantoprazole DR (PROTONIX) 40 mg EC tablet Take 1 tablet (40 mg total) by mouth 2 (two) times a day 1 Active Wegovy 2.4 mg/0.75 mL auto-injector INJECT 2.4MG SUBCUTANEOUSLY ONCE WEEKLY 3 Active levonorgestreL -ethinyl estrad (LUTERA) 0.1-20 mg-mcg per tabletIndicati ons:DUB (dysfunctional uterine bleeding) Take 1 tablet by mouth daily 28 tablet 12 5 026 Active Active Problems Problem Noted Date Diagnosed Date Perimenopausal symptoms 05/22/2025 Assessment & Plan (05/22/2025 3:42 AM CDT): During the pts appt we discussed that I am not sure what tamoxifen will affect her perimenopausal symptoms. I suspect it will make them worse. We discussed that normally during this time we would consider low-dose oral contraceptives to help with the perimenopausal transition She not only has her family history of breast cancer which I do not think the low-dose contraceptives will increase her risk over what they have already given her to deal with but also her MTHFR mutation to think about. I have reviewed the literature and there is not much guidance that I can find on the risk of blood clot with heterozygous MTHFR and low-dose oral contraceptives for perimenopausal symptoms. I reviewed the patient's case with Dr. Byrne specifically if ortho Evra or NuvaRing might be a better option as there would be less stimulation of the liver. After discussing this with the patient we are going to try the NuvaRing for her and see how it controls her symptoms. DUB (dysfunctional uterine bleeding) 05/22/2025 Assessment & Plan (09/04/2025 10:49 AM CDT): Will try ocp. The patient is going to start on oral contraceptives today for DUB. Risks, benefits, and alternatives were reviewed including nausea, hypertension, and risk of DVT. Patient was asked to return to the office in 3 months for blood pressure check. We discussed that oral contraceptives will keep her from getting when taken correctly if needed. She can start her pills today but they may not be enough to keep her from having they next cycle, but the cycles should regulate. If she wants, she can wait and start on the first day of the cycle. We discussed that the patient should take 1 pill a day. If she forgets to take her pills she should take it as soon as she remembers. We discussed that antibiotics will decrease the efficacy of oral contraceptives. It may take three cycles for the cycles to be noticeably different. The patient was encouraged to call with any questions. Breast pain 02/04/2024 Mass overlapping multiple quadrants of left nancy st 02/02/2024 Assessment & Plan (05/22/2025 4:13 AM CDT): Rin in April 09 was WNL At high risk for breast cancer 01/15/2024 Assessment & Plan (01/15/2024 12:00 PM GUEST EXPERIENCE SPECIALIST): TC lifetime risk 21.9% and 5 year risk 2.4%. Patient agreed to mammograms alternating with breast MRIs and oncology referral for chemoprevention. Patient's genetic testing was negative. Well woman exam 10/19/2023 Overview (05/22/2025): Lab: Pap: h/o abnl 10/19/23 WNL Labs with PCP Rin: 04/07/25 BIRADS 1 - Negative Colonoscopy: 07/2022. Told to repeat in 10 years. BMD: Gardasil:did not have. Assessment & Plan (09/04/2025 10:51 AM CDT): Pap repeated today as last was unstasifactory Assessment & Plan (05/22/2025 2:39 AM CDT): Pap done. RTO 12m. I will send the results to the portal. If she has not heard in a week, to call the office. Assessment & Plan (10/19/2023 11:07 AM GUEST EXPERIENCE SPECIALIST): Pap done. RTO 12m. I will send the results to the portal. If she has not heard in a week, to call the office. Family history of cancer 10/19/2023 Overview (11/10/2023): M-breast F-prostate Pgm-ovarian PA- ovarian 11/10/23- my risk negative and TC=22.4% and My Risk=23.2% Assessment & Plan (11/30/2023 11:06 AM GUEST EXPERIENCE SPECIALIST): My risk results reviewed We discussed the management available to her with her increased risk. She is okay with either staying her or going to the breast clinic. Will do routine screening of the ovaries also. Will start this year. Her breast are tender today. The right breast feels like it has clogged milk ducts to her. Will get her rin report Anticipate d/c rin vs first mri after to evaluate lump. Rin was done in 2022, but at [place]. I will request those results. Assessment & Plan (10/19/2023 11:16 AM GUEST EXPERIENCE SPECIALIST): She qualifies for genetic testing. Will arrange. RTO 6 weeks for the results. The limitations and implications of the test reviewed. She voices understanding and would like to proceed. Heterozygous MTHFR mutation [id number] 02/17/2018 Overview (05/09/2024): 02/11/2024-she is enrolled in the [facility] breast cancer program at [facility] 05/09/2024-she was offered chemoprevention in the form of tamoxifen for her increased risk of breast cancer. She has thinking about this Resolved Problems Problem Noted Date Diagnosed Date Resolved Date Elderly multigravida in second trimester 03/31/2018 10/04/2018 History of recurrent miscarriages 02/17/2018 05/08/2025 Antepartum multigravida of a dvanced maternal age 0402/17/2018 10/04/2018 complicated by insulin resistance 02/17/2018 10/04/2018 Supervision of other high ri sk , antepartum 02/17/2018 10/04/2018 resulting from in vitro fertilization, antepartum 02/17/2018 10/04/2018 Anovulation 05/07/2017 03/31/2018 Possible , not yet confirmed 10/17/2015 03/31/2018 Missed 09/10/2015 03/31/2018 Habitual aborter, antepartum 09/10/2015 03/31/2018 Recurrent loss 05/24/2015 Encounters Date Type Department Care Team Description 09/13/2025 Telephone Chris Mendenhall [address] [place] [address] [address] [place] [address] Poornima Sherman MD MRI precert 09/07/2025 Results Follow-Up Chrismiguel HOGUE [address] [place] [address] Poornima Sherman MD Pap and HPV, reflex to HPV Genotypes 09/04/2025 10:30 AM CDT Office Visit [facility] at [address] [address] Poornima Sherman MD DUB (dysfunctional uterine bleeding) (Primary Dx); Well woman exam from Last 3 Months Immunizations Immunization Administration Dates Next Due Influenza, Quadrivalent, Spl it, Preservative Free, Intramuscular 08/05/2018 Tdap 07/29/2018 Surgical History Surgery Date Site/Laterality Comments TONSILLECTOMY ADENOIDECTOMY DILATION AND CURETTAGE OF UTERUS COLPOSCOPY came back normal CYST REMOVAL 11/16/1991 - 11/15/1992 LITHOTRIPSY 06/16/2022 - 07/16/2022 Medical History Medical History Date Comments MTHFR mutation Renal cyst Insulin resistance Abnormal Pap smear of cervix 20 years old Depression years ago [place] product of in vitro fertilization (IVF) Asthma BRCA1 negative BRCA2 negative Family History Medical History Relation Name Comments Heart disease Father Hyperlipidemia Father Hypertension Father Kidney or bladder problems Father Prostate cancer Father dx 2014 Skin cancer Father dx 2020 Ovarian cancer Father's Sister 1 she does nt know if she had testing. Heart disease Maternal Grandfather Breast cancer Mother Hypertension Mother Thyroid disease Mother Colon cancer Paternal Grandfather Ovarian cancer Paternal Grandmother Cancer Neg Hx no colon cancer no change cmt 05/08/25 Relation Name Status Comments Daughter Alive Father Alive Father's Sister 1 Alive Father's Sister 2 Alive Maternal Grandfather Maternal Grandmother (Age 81) Mother Mother's Sister Alive Paternal Grandfather Paternal Grandmother Social History Tobacco Use Types Packs/Day Years Used Date Smoking Tobacco: Former Cigarettes Passive Smoke Exposure: Never Smokeless Tobacco: Never Tobacco Cessation:Counseling Given: Not Answered Alcohol Use Standard Drinks/Week Comments No 0 [...] on file Legal Sex Female 7:26 PM GUEST EXPERIENCE SPECIALIST Gender Identity Not on file Sexual Orientation Not on file Obstetrics History Para Term AB IAB SAB Ectopic Multiple Livin g Live Births 5 1 1 4 3 0 1 1 Date Outcome GA Total Labor Labor//3rd Weight Sex Type Anes PTL Veronica A1 A5 Name Clin 2010 SAB 6w0 d U Demis e 3 SAB 6w0 d U Demis e 5 AB 6w0 d U Demis e 6 SAB 5w0 d U Demis e 2017 Term 38w 6d 3h 37m 2h 09m/1h 24m/0h 04m 3.35 kg (7 lb 6.2 oz) F Vag-S pont Epidur al N Livin g 8 9 YASMEEN SON,G IRLEL RASHARD Greene, Lucy Chairez MD Complications:None Delivery Location:This [facility] Comments 08/2018 - 1D5 euploid embryo FET Last Filed Vital Signs Vital Sign Reading Time Taken Comments Blood Pressure 104/72 09/04/2025 10:37 AM CDT Pulse 98 09/04/2025 10:37 AM CDT Temperature 37.2 C (98.9 F) 04/29/2024 2:34 PM CDT Respiratory Rate 18 09/04/2025 10:37 AM CDT Oxygen Saturation 99% 09/04/2025 10:37 AM CDT Inhaled Oxygen Concentration - - Weight 68.5 kg (151 lb 1.6 oz) 09/04/2025 10:37 AM CDT Height 161.3 cm (5' 3.5) 05/08/2025 10:13 AM CD T Body Mass Index 26.35 05/08/2025 10:13 AM CDT Plan of Treatment Health Maintenance Due Date Last Done Comments Colon Cancer Screening-Colonoscopy 1977 Hepatitis B Screening 1995 Influenza Vaccine (#1) 2025 , 08/24/2024, 11/13/2023, Additional history exists Breast Cancer Screening-Mammogram 04/07/2026 04/07/2025, 02/04/2024, 09/10/2023, Additional history exists Regular Well Visit/Exam 18-64 05/08/2026 05/08/2025, 10/19/2023 Cervical Cancer Screening 09/04/20262024, 05/08/2025, 10/19/2023 Depression Screening 09/04/2026 09/04/2025, 05/08/2025, 10/19/2023 DTaP/Tdap/Td Vaccine (4 - Td or Tdap) 07/29/2028 07/29/2018, 06/18/2017, 07/15/2012 Hepatitis C Screening Completed 03/10/2017, 015 Pneumococcal vaccine <65 Aged Out No longer eligible based on patient's age to complete this topic Procedures Procedure Name Priority Date/Time Associated Diagnosis Comments PAP AND HPV, REFLEX TO HPV GENOTYPES Routine 09/04/2025 11:09 AM CDT Well woman exam SCREENING MAMMOGRAM BILATERAL W LUIS ARMANDO Schedule Routine, Read Routine (OP Routine) 04/07/2025 1:33 PM CDT Screening mammogram, encounter for HEPATITIS C ANTIBODY Routine Gen Lab 03/10/2017 2:00 PM CDT from Last 3 Months or Most Recently Relevant to Health Maintenance Results * Pap and HPV, reflex to HPV Genotypes (09/04/2025 11:09 AM CDT) CLINICAL INFORMATION: [facility] Comment[facility]2025 Previous Pap [facility] Comment:NONE GIVEN Prev. Bx [facility] Comment:NONE GIVEN SOURCE: [facility] Comment:Cervix, Endocervix Pap, specimen adequacy [facility] Comment: Satisfactory for evaluation. Endocervical/transformation zone component present. HPV interp [facility] Comment: Cytology Results: Negative for intraepithelial lesion or malignancy. COMMENTS [facility] Comment: This Pap test has been evaluated with the ThinPrep(R) Imaging System. Nurse Clinical Que [facility] Comment: AMW, CT(ASCP) CT Screening Location: [place] [address] [address] [address] CLIA: [id number] Slide preparation performed at: [facility], [facility] [place], [address] CLIA: [id number] Comment [facility] Comment: EXPLANATORY NOTE: The Pap is a screening test for cervical cancer. It is not a diagnostic test and is subject to false negative and false positive results. It is most reliable when a satisfactory sample, regularly obtained, is submitted with relevant clinical findings and history, and when the Pap result is evaluated along with historic and current clinical information. Human papillomavirus DNA, High Risk E6/E7 Not Detected NOT DETECTED [facility] Comment: Not Detected High Risk HPV types (16,18,31,33,35,39,45,51,52, 56,58,59,66,68) were not detected. Other HPV types which cause anogenital lesions may be present. The significance of the other types of HPV in malignant processes has not been established. Methodology: Real Time PCR Thin prep-Endocervica l 09/04/2025 11:09 AM CDT 09/05/2025 4:12 PM CDT us Poornima Sherman MD LAB CYTOLOGY ORDERA BLES Final Result [facility] [address] [place] [address] [facility] [address] [place] [address] * Screening Mammogram Bilateral W Luis Armando (04/07/2025 1:33 PM CDT) Anatomical Region Laterality Modality Breast Bilateral Mammography Impressions 04/07/2025 1:51 PM CDT Bilateral No evidence of malignancy in either breast. OVERALL BI-RADS FINAL ASSESSMENT: 1 - Negative RECOMMENDATION: Recommend bilateral annual screening mammography. Narrative 04/07/2025 1:51 PM CDT EXAMINATION: Screening Mammogram Bilateral W Luis Armando: 04/07/2025 COMPARISON: Relevant prior studies available at the time of interpretation were reviewed. TECHNIQUE: Mammography was performed with 2D and digital breast tomosynthesis (DBT) images. CAD was utilized. BREAST PARENCHYMAL COMPOSITION: The breasts are heterogeneously dense, which may obscure small masses. FINDINGS: Bilateral There is no suspicious mass, calcification, or architectural distortion in either breast. Self Screening Mammogram IMG MAMMO PROCEDURES Fi nal Result * Hepatitis C antibody (03/10/2017 2:00 PM CDT) Hep C Ab Nonreactive Nonreactive [facility] Comment: Interpretive Data Positive results should be confirmed by a molecular method. If positive, a second separately collected sample should be submitted for Hepatitis C Virus (HCV) RNA Detection and Quantitation by Real-Time Reverse Physician Obstetrician-PCR (RT-PCR). Current interpretive data was last revised on 2016. Blood specimen (specimen) 03/10/2017 2:00 PM CDT 03/10/2017 6:18 PM CDT Alberto Torres MD LAB MICROBIOLOGY - GENERA L ORDERABLES Edited Result - Final [facility] [place] [address] from Last 3 Months or Most Recently Relevant to Health Maintenance Insurance [facility] BLUE ACCESS OOS [employer] ACCESS CHOICE ANTHEM ACCESS ANTHEM ACCESS Advance Directives For more information, please contact: [phone] * Full Code (Latest Code Status on File) Date Activated Date Inactivated Comments 09/03/2018 12:50 PM 09/05/2018 7:40 PM * Full Code Date Activated Date Inactivated Comments 09/02/2018 8:08 AM 09/03/2018 12:50 PM Full CPR in case of cardiopulmonary arrest Care Teams Biology Intern Relationship Specialty Start Date End Date Iona John NP [address] [place] [address] [address] [place] [address] PCP - General Internal Medicine 01/14/24 Poornima Sherman MD [address] [place] [address] [address] [place] [address] Consulting Physician Obstetrics and Gynecology 01/07/24 Deanna Ledezma MD [address] [place] [address] Medical Oncologist/Supervisor Paint Department Hematology and Oncology 01/20/24
--- OUTSIDE RECORDS SUMMARY | 2025-11-01 11:19 | XMS_ITS | Encounter Summary ---
Author Organization [facility] Address 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 Gender Identity Not on file Sexual Orientation Not on file documented as of this encounter Plan of Treatment Not on file documented as of this encounter Procedures Procedure Name Priority Date/Time Associated Diagnosis Comments CT ABDOMEN PELVIS WO CONTRAST Routine 2009 1:15 AM CDT CBC WITH DIFFERENTIAL Stat 2009 1:10 AM CDT C-REACTIVE PROTEIN Stat 2009 1: 10 AM CDT COMPREHENSIVE METABOLIC PANEL Stat 2009 1:10 AM CDT POC URINALYSIS DIPSTICK AUTOMATED Routine 2009 12:53 AM CDT POC , URINE Routine 2009 12:53 AM CDT documented in this encounter Results * CT ABDOMEN PELVIS WO CONTRAST (2009 1:15 AM CDT) Anatomical Region Laterality Modality Abdomen Other 2009 1:15 AM CDT Narrative 02/13/2009 2:43 PM CDT [place] [address] [address] [place] [place] [address] Admit Date: 01/27/2009 STEPHANIE MELVIN Sex: F Admit Prov: TRINIDAD SALAZAR Date: 1975 Primary Care Prov: CMRN: [id number] Room: ER-A N: [address] [place] [address] IMAGING SERVICES Ordering Prov: N/A Accession Number: [id number] Interpretation Examination: CT abdomen and pelvis without contrast. Clinical history: Pain Procedure: Axial images of the abdomen and pelvis were obtained from the dome of the diaphragm through the pubis without oral and IV contrast. Findings: The liver, pancreas, spleen, kidneys, adrenals, stomach, aorta, IVC, and gallbladder are radiographically normal. No free intraperitoneal air or fluid is present. The pelvic structures are normal. The bowel loops are normal in caliber and appearance. Impression: Normal CT examination of the abdomen and pelvis. . Dictated by: Bao MERINO 02/13/2009 14:41 Electronically signed by: Bao MERINO 02/13/2009 14:41 Procedure Note Richie Merino MD - 02/13/2009 [place] [address] [address] [place] [place] [address] Admit Date: 01/27/2009 STEPHANIE MELVIN Sex: F Admit Prov: TRINIDAD SALAZAR Date: 1975 Primary Care Prov: CMRN: [id number] [facility] [address] [place] [address] IMAGING SERVICES Ordering Prov: N/A Interpretation Examination: CT abdomen and pelvis without contrast. Clinical history: Pain Procedure: Axial images of the abdomen and pelvis were obtained fromthe dome of the diaphragm through the pubis without oral and IVcontrast. Findings: The liver, pancreas, spleen, kidneys, adrenals, stomach,aorta, IVC, and gallbladder are radiographically normal. No freeintraperitoneal air or fluid is present. The pelvic structures are normal. The bowelloops are normal in caliber and appearance. Impression: Normal CT examination of the abdomen and pelvis. . Dictated by: Bao MERINO 02/13/2009 14:41 Electronically signed by: Bao MERINO 02/13/2009 14:[address] ORDERABLES Final Result * CBC WITH DIFFERENTIAL (2009 1:10 AM CDT) MCV 92.8 82.0 - 99.0 fL [facility] PLATELETS 239 140 - 350 K/uL [facility] HEMOGLOBIN 12.0 11.8 - 14.8 g/dL [facility] RDW 13.2 11.5 - 14.5 % [facility] WBC 7.8 4.0 - 9.8 K/uL [facility] MCH 29.9 27.2 - 32.6 pg [facility] MPV 10.7 9.3 - 12.4 fL [facility] HEMATOCRIT 37.3 35.5 - 44.0 % [facility] RDW-STDEV 44.4 37.1 - 48.7 fL [facility] RBC 4.02 3.90 - 4.90 M/uL [facility] MCHC 32.2 31.5 - 35.5 % [facility] NEUTROPHIL ABSOLUTE 3.67 1.90 - 7.00 K/uL [facility] EOSINOPHILS 3 0 - 7 % [facility] EOSINOPHIL ABSOLUTE 0.26 0.00 - 0.70 K/uL [facility] LYMPHOCYTES 42 16 - 45 % [facility] LYMPHOCYTE ABSOLUTE 3.26 0.70 - 4.50 K/uL [facility] BASOPHILS 1 0 - 2 % [facility] BASOPHILS ABSOLUTE 0.07 0.00 - 0.20 K/uL [facility] MONOCYTES 7 3 - 13 % [facility] MONOCYTE ABSOLUTE 0.58 0.10 - 1.30 K/uL [facility] NEUTROPHILS 47 45 - 70 % [facility] Blood specimen (specimen) 2009 1:10 AM CDT 2009 1:16 AM CDT Trinidad Salazar MD HEMATOLOGY ORDERABLES Edited Performing Organization Address [facility] Phone Number INTERFACE SYSTEM Refer to clinic/hospital department [facility] CLIA# [id number] [address] [facility] [place] [address] * C-REACTIVE PROTEIN (2009 1:10 AM CDT) Pathologist [facility] CRP <0.2 0.0 - 0.8 mg/dL [facility] Blood specimen (specimen) 2009 1:10 AM CDT 2009 1:16 AM CDT Trinidad Salazar MD CHEMISTRY ORDERABLES Final R esult Performing Organization Address [facility] Phone Number INTERFACE SYSTEM Refer to clinic/hospital department [facility] CLIA# [id number] [address] [facility] [place] [address] * (ABNORMAL) COMPREHENSIVE METABOLIC PANEL (2009 1:10 AM CDT) CALCIUM 8.8 8.6 - 10.2 mg/dL [facility] ALBUMIN 4.4 3.4 - 4.8 g/dL [facility] CHLORIDE 107 96 - 108 mmol/L [facility] CREATININE 0.62 0.51 - 0.95 mg/dL [facility] ALT 19 0 - 31 U/L [facility] SODIUM 143 135 - 145 mmol/L [facility] ALKALINE PHOSPHATASE 73 35 - 104 U/L [facility] CO2 29 22 - 30 mmol/L [facility] BILIRUBIN TOTAL 0.2 0.2 - 1.0 mg/dL [facility] POTASSIUM 3.7 3.5 - 4.9 mmol/L [facility] TOTAL PROTEIN 6.7 6.3 - 8.6 g/dL [facility] GLUCOSE 113(H) 65 - 99 mg/dL [facility] AST 16 12 - 32 U/L [facility] BUN 16 6 - 20 mg/dL [facility] GFR, >60 >=60 mL/min/1. 7 sq meter [facility] GFR >60 >=60 mL/min/1. 7 sq meter [facility] Comment: Modification of Diet in Renal Disease (MDRD) study formula. Estimated GFR rate interpretative information for both Americans and non- Americans is available on the [facility] Intranet at: [email or web address] Select: Lab Policies and Procedures Select: Reference Ranges - GFR Blood specimen (specimen) 2009 1:10 AM CDT 2009 1:16 AM CDT us Trinidad Salazar MD CHEMISTRY ORDERABLES Edited INTERFACE SYSTEM Refer to clinic/hospital department [facility] CLIA# [id number] [address] [place] [address] * POC , URINE (2009 12:53 AM CDT) SPECIFIC GRAVITY UA 1.030 1.001 - 1.035 [facility] , URINE POC Negative Negative [facility] Urine specimen (specimen) 2009 12:53 AM CDT 2009 12:53 AM CDT us Authorized P Er POINT OF CARE TESTING Final Resu lt Performing Organization Address [facility] de Phone Number INTERFACE SYSTEM Refer to clinic/hospital department [facility] CLIA# [id number] [address] [place] [address] * POC URINALYSIS DIPSTICK AUTOMATED (2009 12:53 AM CDT) SPECIFIC GRAVITY UA 1.030 1.001 - 1.030 [facility] GLUCOSE UA Negative Negative [facility] COLOR UA Yellow [facility] NITRITE UA Negative Negative [facility] BILIRUBIN UA Negative Negative [facility] PH UA 5.0 5.0 - 8.0 [facility] KETONES UA Negative Negative [facility] CLARITY UA Clear [facility] PROTEIN UA Negative Negative [facility] BLOOD UA Negative Negative [facility] LEUKOCYTE ESTERASE UA Negative Negative [facility] UROBILINOGEN UA 1+ (1 mg/dL) <=1 mg/dL [facility] 2009 12:5 3 AM CDT 2009 12:53 AM CDT us Authorized P Er POINT OF CARE TESTING Final Resu lt Performing Organization Address [facility] de Phone Number INTERFACE SYSTEM Refer to clinic/hospital department [facility] CLIA# [id number] [address] [place] [address] documented in this encounter Visit Diagnoses Not on filedocumented in this encounter Care Teams Produce Field Merchandiser Relationship Specialty Start Date End Date Zeenat Ramirez MD PCP - General Family Practice 06/29/14 documented as of this encounter
--- OUTSIDE RECORDS SUMMARY | 2025-11-01 11:19 | XMS_ITS | Clinical Summary ---
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 Gender Identity Not on file Sexual Orientation Not on file Plan of Treatment Health Maintenance Due Date Last Done Comments DTAP/TDAP/TD VACCINES (1 - Tdap) 01/29/1996 HEPATITIS B VACCINES (1 of 3 - 19+ 3-dose series) 01/29/1996 PAP SMEAR 02/13/2012 02/12/2009, 02/12/2009 CERVICAL CANCER SCREENING 02/12/2014 HPV/Cotest (21-29) 02/12/2014 02/12/2009 HPV/Cotest (30-65) 02/12/2014 02/12/2009 BREAST CANCER SCREENING 2017 COLORECTAL SCREENING 2022 Colorectal Cancer Screening 2022 FIT-DNA Q 3 years 2022 FIT/FOBT Q 1 year 2022 Flex Sig/CT Colonography Q 5 years 2022 INFLUENZA VACCINE (#1) 2025 Insurance [employer] PPO [id number] Care Teams Production Estimator Relationship Specialty Start Date End Date Zeenat Ramirez MD PCP - General Family Practice 06/29/14
== END 2025-11-01 09:49 | disposition home or self-care (01) ==
PROVIDERS: PCP Clinical Nurse Specialist; Visit Provider Clinical Nurse Specialist
DX: R10.11 Right upper quadrant pain (principal)
CPT/HCPCS: 78227; A9537; J2805